=== PATIENT | female | born 2000 | race African-American/Black ===

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

== ENCOUNTER 2020-10-31 19:29 | Inpatient (IN) | payer MEDICAID ==
[~2020-10-31] VITALS: Ht 165.1 cm; Wt 45.4 kg
[~2020-10-31 19:29] MED LIST: MACROBID100 MG PO; PHENAZOPYRIDIN100 MG PO
[2020-10-31 20:10] LABS: BASOPHILS 0.2 % (0-2); EOSINOPHILS 0 % (0-7); HEMATOCRIT 27.9 % (36.0-48.0); IMMATURE GRANULOCYTES 0.2 % (0-5); LYMPHOCYTE ABS# 0.55 10x3/uL (1.18-3.74); LYMPHOCYTES 12.7 % (15-50); MCH 25.2 pg (26.0-34.0); MCHC 32.3 g/dL (31.0-37.0); MCV 78.2 fL (80.0-100.0); MEAN PLATELET VOLUME 9.8 fL (7.4-10.4); MONOCYTES 7.1 % (2-11); NEUTROPHIL ABS# 3.46 10x3/uL (1.56-6.13); NEUTROPHILS 79.8 % (40-80); PLATELET COUNT 339 10x3/uL (130-400); RBC 3.57 10x6/uL (4.00-5.40); RDW 13.7 % (11.5-14.5); WBC 4.3 10x3/uL (4.8-10.8)
[2020-10-31 20:25] LABS: CALC OSMOLALITY 265 mosm/kg (275-300); CALCIUM 8.3 mg/dL (8.5-10.1); CARBON DIOXIDE 26.9 mmol/L (21.0-32.0); CHLORIDE - SERUM 99 mmol/L (98-107); CREATININE - SERUM 0.8 mg/dL (0.6-1.3); GLUCOSE 88 mg/dL (74-106); POTASSIUM - SERUM 3.5 mmol/L (3.5-5.1); SODIUM 134 mmol/L (136-145); UREA NITROGEN 9 mg/dL (7-18); eGFR NON AFRICAN AMERICAN > 90 mL/min (90-120)
[2020-10-31 20:26] LABS: HCG SERUM NEGATIVE (NEGATIVE)
[2020-10-31 20:28] LABS: APTT 33.2 SECONDS (22.8-39.4); INR 1.23 (0.85-1.17); PROTIME 14.4 SECONDS (11.6-15.0)
[2020-10-31 20:41] LABS: D-DIMER-QUANTITATIVE 12.45 ug/mLFEU (0.20-0.54)
[2020-10-31 20:44] LABS: BILIRUBIN NEGATIVE (NEGATIVE); KETONE MODERATE mg/dL (NEGATIVE); NITRITE NEGATIVE (NEGATIVE)
[2020-10-31 20:45] LABS: SQUAMOUS EPITHELIAL 0-5 HPF (0-4)
[2020-10-31 20:47] LABS: ALBUMIN 2.4 g/dL (3.4-5.0); ALKALINE PHOSPHATASE 119 U/L (30-120); ALT (SGPT) 39 U/L (10-68); BILIRUBIN - TOTAL 0.37 mg/dL (0.2-1.3); CKMB 0.5 U/L (0.0-3.6); CREATINE KINASE 55 UL (21-215); LIPASE 57 U/L (73-393); MAGNESIUM - SERUM 1.6 mg/dL (1.8-2.4); PROTEIN - SERUM 7.9 g/dL (6.4-8.2)
[2020-10-31 21:09] LABS: INFLUENZA TYPE A NEGATIVE (NEGATIVE); INFLUENZA TYPE B NEGATIVE (NEGATIVE); SARS-CoV-2 ANTIGEN NEGATIVE- SARS-COV-2 (NEGATIVE)
[2020-10-31 22:57] VITALS: BP 98/65
[2020-11-01] VITALS (7 sets, daily range): BP systolic 90–110; BP diastolic 47–68; BMI 16.6
--- NOTE | 2020-11-01 00:27 | NUR ---
PT ARRIVED VIA STRETCHER FROM ER. NO DISTRESS NOTED.
--- NOTE | 2020-11-01 00:34 | NUR ---
Yogi COLE APRN ASSESSING PT.
[2020-11-01] MEDS ORDERED: GABAPENTIN100 MG (00:51)
[2020-11-01] MEDS ORDERED: FOLATE0.4 MG PO (00:52)
--- NOTE | 2020-11-01 01:28 | NUR ---
ADMISSION ASSESSMENT, HISTORY AND HOME MED LIST COMPLETED. PT STATES SHE IS EXHAUSTED AND JUST WANTS TO SLEEP. LUNGS ESSENTIALLY CTA. HEART TONES S1 S2. PALPABLE PERIPHEERAL PULSES. VSS. ST PER CM HR 106. IV TO LFA SL. NON SLIP SOCKS PLACED ON PT. SR UP X1, CALL LIGHT WITHIN REACH.
--- NOTE | 2020-11-01 04:34 | NUR ---
PT AWAKE; DENIES ANY DISCOMFORT OR NEEDS, CALL LIGHT WITHIN REACH.
[2020-11-01 07:53] LABS: BASOPHILS 0 % (0-2); EOSINOPHILS 0 % (0-7); HEMATOCRIT 25.2 % (36.0-48.0); IMMATURE GRANULOCYTES 0.3 % (0-5); LYMPHOCYTES 8.1 % (15-50); MCH 24.7 pg (26.0-34.0); MCHC 31.7 g/dL (31.0-37.0); MCV 77.8 fL (80.0-100.0); MEAN PLATELET VOLUME 9.4 fL (7.4-10.4); MONOCYTES 6.8 % (2-11); NEUTROPHIL ABS# 3.14 10x3/uL (1.56-6.13); NEUTROPHILS 84.8 % (40-80); PLATELET COUNT 282 10x3/uL (130-400); RBC 3.24 10x6/uL (4.00-5.40); RETIC 1.12 % (0.45-2.28); WBC 3.7 10x3/uL (4.8-10.8)
[2020-11-01 08:12] LABS: % SATURATION 8 % (15-55); IRON 12 ug/dl (35-150); TOTAL IRON BIND CAPACITY 144 ug/dl (260-445); UNSAT IRON BIND CAPACITY 132 ug/dl (150-375)
[2020-11-01 08:44] LABS: C-REACTIVE PROTEIN 7.7 mg/dL (0.0-0.9); CALCIUM 8.1 mg/dL (8.5-10.1); CARBON DIOXIDE 23.6 mmol/L (21.0-32.0); CHLORIDE - SERUM 105 mmol/L (98-107); CHOL - HDL RATIO 2.3 ratio (2.3-4.1); CHOLESTEROL, TOTAL 66 mg/dL (0-200); CREATININE - SERUM 0.7 mg/dL (0.6-1.3); FERRITIN 296 ng/mL (3-244); HDL CHOLESTEROL 29 mg/dL (32-96); LDH 249 U/L (81-234); LDL CHOLESTEROL 28 mg/dL (0-100); MAGNESIUM - SERUM 1.9 mg/dL (1.8-2.4); PHOSPHOROUS 4.4 mg/dL (2.5-4.9); SODIUM 137 mmol/L (136-145); TRIGLYCERIDE 45 mg/dL (30-200); TROPONIN-I < 0.017 ng/mL (0.000-0.060); UREA NITROGEN 7 mg/dL (7-18); eGFR NON AFRICAN AMERICAN > 90 mL/min (90-120)
[2020-11-01 08:48] LABS: CALC OSMOLALITY 274 mosm/kg (275-300); GLUCOSE 144 mg/dL (74-106); POTASSIUM - SERUM 4.8 mmol/L (3.5-5.1)
[2020-11-01 12:02] LABS: ERYTHROCYTE SEDIMENTATION RATE 101 mm/hr (0-20)
[2020-11-02 07:09] VITALS: BP 95/63
--- NOTE | 2020-11-02 08:00 | NUR ---
PT RECEIVED ASLEEP IN BED, PAIN MED GIVEN PRIOR TO SHIFT CHANGE. BP LOW BUT STEADY LEVEL.
[2020-11-02 10:01] LABS: CALCIUM 8.3 mg/dL (8.5-10.1); CARBON DIOXIDE 24.2 mmol/L (21.0-32.0); CHLORIDE - SERUM 109 mmol/L (98-107); CREATININE - SERUM 0.7 mg/dL (0.6-1.3); SODIUM 142 mmol/L (136-145); eGFR NON AFRICAN AMERICAN > 90 mL/min (90-120)
[2020-11-02 10:03] LABS: CALC OSMOLALITY 278 mosm/kg (275-300); GLUCOSE 81 mg/dL (74-106); POTASSIUM - SERUM 3.7 mmol/L (3.5-5.1); UREA NITROGEN 5 mg/dL (7-18)
[2020-11-02 10:07] LABS: ALKALINE PHOSPHATASE 176 U/L (30-120); BILIRUBIN - TOTAL 0.24 mg/dL (0.2-1.3); PROTEIN - SERUM 6.8 g/dL (6.4-8.2)
[2020-11-02 10:08] LABS: ALT (SGPT) 60 U/L (10-68)
[2020-11-02 10:12] LABS: ERYTHROPOIETIN 35.5 mIU/mL (2.6-18.5)
[2020-11-02 10:12] LABS: BASOPHILS 0.2 % (0-2); EOSINOPHILS 0.2 % (0-7); LYMPHOCYTE ABS# 0.67 10x3/uL (1.18-3.74); LYMPHOCYTES 14.6 % (15-50); MCH 24.8 pg (26.0-34.0); MCV 77.4 fL (80.0-100.0); MEAN PLATELET VOLUME 9.6 fL (7.4-10.4); MONOCYTES 5.9 % (2-11); NEUTROPHIL ABS# 3.53 10x3/uL (1.56-6.13); NEUTROPHILS 77.1 % (40-80); PLATELET COUNT 321 10x3/uL (130-400); RBC 3.23 10x6/uL (4.00-5.40); RDW 14.4 % (11.5-14.5); WBC 4.6 10x3/uL (4.8-10.8)
[2020-11-02 12:12] VITALS: BP 88/58
[2020-11-02 14:07] VITALS: Ht 165.1 cm; Wt 45.4 kg
[2020-11-02 15:21] VITALS: BP 92/54
--- NOTE | 2020-11-02 19:30 | NUR ---
PT IN BED, AAO X 4, RESP EVEN AND UNLABORED, NO DISTRESS NOTED, CL IN REACH, SR UP X 2.
[2020-11-02 20:00] VITALS: BP 97/52
[2020-11-03] VITALS: BP 102/60
[2020-11-03 04:00] VITALS: BP 97/64
--- NOTE | 2020-11-03 05:47 | NUR ---
I have reviewed this patient and I concur with the Shift Assessment completed by the Licensed Practical Nurse today this shift.
--- NOTE | 2020-11-03 07:10 | NUR ---
Lying in bed, awake/alert/oriented, T/R self ad dimitri, cont of B/B with BRPs per self ad dimitri, denies pain/other discomfort at this time, call light/phone/water within reach, no s/s of acute distress observed.
[2020-11-03 07:45] LABS: ALBUMIN 1.9 g/dL (3.4-5.0); ALKALINE PHOSPHATASE 149 U/L (30-120); BILIRUBIN - TOTAL 0.14 mg/dL (0.2-1.3); CALC OSMOLALITY 277 mosm/kg (275-300); CARBON DIOXIDE 24.7 mmol/L (21.0-32.0); CHLORIDE - SERUM 109 mmol/L (98-107); CREATININE - SERUM 0.7 mg/dL (0.6-1.3); GLUCOSE 86 mg/dL (74-106); MAGNESIUM - SERUM 1.8 mg/dL (1.8-2.4); POTASSIUM - SERUM 3.5 mmol/L (3.5-5.1); PRO BNP 999 pg/mL (0-125); PROTEIN - SERUM 6.7 g/dL (6.4-8.2); SODIUM 141 mmol/L (136-145); UREA NITROGEN 6 mg/dL (7-18); eGFR NON AFRICAN AMERICAN > 90 mL/min (90-120)
[2020-11-03 07:47] LABS: ALT (SGPT) 43 U/L (10-68)
[2020-11-03 07:53] LABS: BASOPHILS 0.3 % (0-2); EOSINOPHILS 0.5 % (0-7); HEMATOCRIT 26.7 % (36.0-48.0); HEMOGLOBIN 8.4 g/dL (12-16); IMMATURE GRANULOCYTES 0.8 % (0-5); LYMPHOCYTE ABS# 0.57 10x3/uL (1.18-3.74); LYMPHOCYTES 14.6 % (15-50); MCH 24.8 pg (26.0-34.0); MCHC 31.5 g/dL (31.0-37.0); MCV 78.8 fL (80.0-100.0); MEAN PLATELET VOLUME 10.7 fL (7.4-10.4); MONOCYTES 5.1 % (2-11); NEUTROPHIL ABS# 3.07 10x3/uL (1.56-6.13); NEUTROPHILS 78.7 % (40-80); RBC 3.39 10x6/uL (4.00-5.40); RDW 14.5 % (11.5-14.5); WBC 3.9 10x3/uL (4.8-10.8)
[2020-11-03 08:05] LABS: PLATELET COUNT 396 10x3/uL (130-400)
[2020-11-03 08:17] VITALS: BP 105/55
[2020-11-03] MEDS ORDERED: OMNICEF300 MG PO (09:27)
[2020-11-03] MEDS ORDERED: PREDNISONE10 MG PO (09:27)
[2020-11-03] MEDS ORDERED: AZITHROMYCIN500 MG PO (09:27)
[2020-11-03 12:11] LABS: PROCALCITONIN 0.06 ng/mL (0.00-0.08)
--- NOTE | 2020-11-03 14:27 | NUR ---
IV infiltrated, stopped IV, took cath out, attempted to resite IV x 2 without success, request made of KONSTANTIN Avendaño.
--- NOTE | 2020-11-03 15:25 | NUR ---
Charge Nurse resited with 22ga cath to rt. ac, Iron restarted at 75 ml/hr
--- NOTE | 2020-11-03 23:12 | MORECARE ---
CASE MANAGEMENT DISCHARGE SUMMARY PATIENT: AVIVA WELCH UNIT: [id number] ADM DATE: 10/31/20 AGE: 20 : 00 SEX: F ROOM/BED: [facility] AUTHOR: ANGEL GIBSON PHYSICIAN: REFERRING PHYSICIAN: PAUL PRABHAKAR MD DATE OF SERVICE: 11/03/20 Case Management Discharge Planning Summary DCP REVIEW SUMMARY ANTICIPATED D/C DATE: 11/03/2020 EXPECTED LOS : 3 CASE STATUS: DCP Complete INITIAL REVIEW: 10/31/2020 INITIAL REVIEWER: Stephenie Salazar FINAL DISCHARGE DISPOSITION: 01 : Home or Self Care (Routine Discharge) FINAL REVIEWER: Stephenie Salazar FINAL REVIEW DATE: 11/03/2020 DCP Focus Questions & Answers DCP Screen QUESTION: ANSWER High Risk Factors: : Readmission within past 30 days DCP Evaluation QUESTION: ANSWER Patient's ability to cope with chronic illness : d. No chronic illness Would patient like to participate in any Care Coordination programs (if applicable): : Not applicable Mental health screen: : No mental health history DCP Re-evaluation QUESTION: ANSWER Would patient like to participate in any Care Coordination programs (if applicable): : Not applicable PATIENT: AVIVA WELCH ENCOUNTER: [id number] MEDICAL RECORD#: [id number] ADMISSION DATE: 10/31/2020 DISCHARGE DATE: 11/03/2020 ATTENDING MD: PAUL RENTERIA : AGE: 20 MARITAL STATUS: S DC PLAN ID: [id number] FACILITY: [facility] PRINTED ON: 11/03/20 23:12 CT All edits/amendments must be made on the electronic document DICTATION DATE: 11/03/202310 SCREEN PRINTING CLOTH SPREADER: DM 11/03/202310 RPT#: [id number] DC DATE:11/03/20 STATUS: DIS IN [facility] [address] [place] [address] END OF REPORT
--- NOTE | 2020-11-03 23:32 | MORECARE ---
CASE MANAGEMENT DISCHARGE SUMMARY PATIENT: AVIVA WELCH UNIT: [id number] ADM DATE: 10/31/20 AGE: 20 : 00 SEX: F ROOM/BED: D.2133 AUTHOR: ANGEL GIBSON PHYSICIAN: REFERRING PHYSICIAN: PAUL PRABHAKAR MD DATE OF SERVICE: 11/03/20 Case Management Discharge Planning Summary COMMENTS ENTERED DATE: 11/03/20 23:26 CT COMMENT TYPE: Discharge Planning REVIEWER: Stephenie Salazar CM spoke with patient to complete initial dc planning assessment. CM educated patient on the CM role and verbal consent given by patient to complete assessment. Patient lives at home with family. Patient is independent. At discharge patient plans to return home and feels this is a safe discharge. CM discussed availability of home health, rehab services, and medical equipment. Patient will have family to transport home. Patient denied known discharge needs at this time. CM will continue to follow and will assist as needed with dc plans/needs. DCP REVIEW SUMMARY ANTICIPATED D/C DATE: 11/03/2020 EXPECTED LOS : 3 CASE STATUS: DCP Complete INITIAL REVIEW: 10/31/2020 INITIAL REVIEWER: Stephenie Salazar FINAL DISCHARGE DISPOSITION: 01 : Home or Self Care (Routine Discharge) FINAL REVIEWER: Stephenie Salazar FINAL REVIEW DATE: 11/03/2020 DCP Focus Questions & Answers DCP Screen QUESTION: ANSWER High Risk Factors: : Readmission within past 30 days DCP Evaluation QUESTION: ANSWER Patient and/or caregiver agree upon recommended discharge plan? : Yes Patient's current cognitive status: : *Oriented to person, place, situation, time and present Patient's ability to cope with chronic illness : d. No chronic illness Patient gives permission to discuss discharge plans with: (name, relationship and number) : CHASE EldridgeMOTHER- [id number]. [phone] Family / Caregiver's ability to cope with chronic illness: : a. Adequate (ability to meet patient's medical needs, ensures patient attends medical appts.) Does the patient have the ability to pay for or attain post discharge needs / services? : Yes Functional screen assessment: : Basic needs can adequately be met by self Physical Status: : Independent with ADL's Equipment needed for post hospitalization: : None Is there a likelihood that the patient will require additional services to return to the preadmission environment? : N/A Living Arrangements: : Home with Spouse/Significant Other Results of this evaluation have been discussed with: : Patient Patient with capacity for self-care or can be cared for in same environment as prior to hospitalization? : Yes Baseline cognitive status: : *Oriented to person, place, situation, time and present Living arrangements comments: : LIVES W BOYFRIEND Medication Management: : Patient states can afford medications Pharm[facility] name(s): : [facility] Does Patient have transportation to get home and to follow-up medical appointments when discharged from the hospital? : Yes Would patient like to participate in any Care Coordination programs (if applicable): : Not applicable Does the patient have electricity at home? : Yes Does the patient have running water in their house? : Yes Equipment in use: : None Mental health screen: : No mental health history DCP Re-evaluation QUESTION: ANSWER Would patient like to participate in any Care Coordination programs (if applicable): : Not applicable PATIENT: AVIVA WELCH ENCOUNTER: [id number] MEDICAL RECORD#: [id number] ADMISSION DATE: 10/31/2020 DISCHARGE DATE: 11/03/2020 ATTENDING MD: PAUL RENTERIA : AGE: 20 MARITAL STATUS: S DC PLAN ID: [id number] FACILITY: [facility] PRINTED ON: 11/03/20 23:32 CT All edits/amendments must be made on the electronic document DICTATION DATE: 11/03/202331 RESEARCH GEOLOGIST: SHAREE 11/03/202331 RPT#: [id number] DC DATE:11/03/20 STATUS: DIS IN [facility] [address] [place] [address] END OF REPORT
== END 2020-11-03 20:26 | disposition home or self-care (01) | DRG 194 ==
LOC: D.ER 19:29 → D.M2 23:07
PROVIDERS: Emergency Medicine; Family Medicine; ADMIT Emergency Medicine; ATTEND Emergency Medicine
DX: J18.9 Pneumonia, unspecified organism (principal); I31.3 Pericardial effusion (noninflammatory); Z20.822 Contact with and (suspected) exposure to COVID-19; D50.9 Iron deficiency anemia, unspecified; M32.9 Systemic lupus erythematosus, unspecified; M34.9 Systemic sclerosis, unspecified; R59.1 Generalized enlarged lymph nodes; I07.1 Rheumatic tricuspid insufficiency

== ENCOUNTER 2020-11-15 19:29 | Emergency (ER) | payer MEDICAID ==
[~2020-11-15] VITALS: Ht 165.1 cm; Wt 45.5 kg
[~2020-11-15 19:29] MED LIST changes: +AZITHROMYCIN500 MG PO; +FOLATE0.4 MG PO; +GABAPENTIN100 MG; +OMNICEF300 MG PO; +PREDNISONE10 MG PO
[2020-11-15 19:45] VITALS: Ht 165.1 cm; Wt 45.5 kg
[2020-11-15] MEDS ORDERED: TREXALL7.5 MG PO (19:47)
[2020-11-15] MEDS ORDERED: OXYCONTIN10 MG PO (19:48)
[2020-11-15] MEDS ORDERED: VITAMIN D325 MC1 PO (19:48)
[2020-11-15] MEDS ORDERED: FOLIC ACID1 MG PO (19:48)
[2020-11-15 21:10] LABS: BASOPHILS 0.2 % (0-2); EOSINOPHILS 0 % (0-7); HEMATOCRIT 30.6 % (36.0-48.0); HEMOGLOBIN 9.9 g/dL (12-16); IMMATURE GRANULOCYTES 0.9 % (0-5); LYMPHOCYTE ABS# 0.68 10x3/uL (1.18-3.74); LYMPHOCYTES 12.6 % (15-50); MCH 25.4 pg (26.0-34.0); MCHC 32.4 g/dL (31.0-37.0); MCV 78.5 fL (80.0-100.0); MEAN PLATELET VOLUME 9.4 fL (7.4-10.4); MONOCYTES 4.8 % (2-11); NEUTROPHIL ABS# 4.38 10x3/uL (1.56-6.13); NEUTROPHILS 81.5 % (40-80); PLATELET COUNT 426 10x3/uL (130-400); RDW 16.4 % (11.5-14.5); WBC 5.4 10x3/uL (4.8-10.8)
[2020-11-15 21:22] LABS: APTT 33.2 SECONDS (22.8-39.4); INR 1.31 (0.85-1.17); PROTIME 15.1 SECONDS (11.6-15.0)
[2020-11-15 21:23] LABS: CALC OSMOLALITY 263 mosm/kg (275-300); CALCIUM 8.9 mg/dL (8.5-10.1); CARBON DIOXIDE 23.9 mmol/L (21.0-32.0); CHLORIDE - SERUM 99 mmol/L (98-107); GLUCOSE 95 mg/dL (74-106); POTASSIUM - SERUM 3.7 mmol/L (3.5-5.1); SODIUM 133 mmol/L (136-145); UREA NITROGEN 8 mg/dL (7-18); eGFR NON AFRICAN AMERICAN 75 mL/min (90-120)
[2020-11-15 21:33] LABS: ALBUMIN 2.5 g/dL (3.4-5.0); ALKALINE PHOSPHATASE 186 U/L (30-120); ALT (SGPT) 44 U/L (10-68); BILIRUBIN - TOTAL 0.75 mg/dL (0.2-1.3); PRO BNP 750 pg/mL (0-125); PROTEIN - SERUM 8.8 g/dL (6.4-8.2)
[2020-11-15] MEDS ORDERED: VIBRAMYCIN 100100 MG PO (23:12)
[2020-11-16 00:02] VITALS: BP 103/62
== END 2020-11-16 00:03 | disposition home or self-care (01) ==
LOC: D.ER 19:29
PROVIDERS: Family Medicine
DX: J18.9 Pneumonia, unspecified organism (principal); R07.9 Chest pain, unspecified

== ENCOUNTER 2020-12-01 23:59 | Emergency (ER) | payer MEDICAID ==
[~2020-12-01] VITALS: Ht 165.1 cm; Wt 45.5 kg
[~2020-12-01 23:59] MED LIST changes: +FOLIC ACID1 MG PO; +OXYCONTIN10 MG PO; +TREXALL7.5 MG PO; +VIBRAMYCIN 100100 MG PO; +VITAMIN D325 MC1 PO
[2020-12-02 00:07] VITALS: Ht 165.1 cm; Wt 45.5 kg
[2020-12-02] MEDS ORDERED: HYDROCODON-ACE1 EAC7 PO (00:12)
[2020-12-02 01:02] LABS: EOSINOPHILS 0.2 % (0-7); HEMATOCRIT 29.6 % (36.0-48.0); HEMOGLOBIN 9.3 g/dL (12-16); LYMPHOCYTES 11.7 % (15-50); MCH 24.2 pg (26.0-34.0); MCHC 31.6 g/dL (31.0-37.0); MCV 76.7 fL (80.0-100.0); MEAN PLATELET VOLUME 7.7 fL (7.4-10.4); MONOCYTES 4.6 % (2-11); NEUTROPHILS 76.5 % (40-80); RBC 3.85 10x6/uL (4.00-5.40); RDW 18.7 % (11.5-14.5); WBC 3.4 10x3/uL (4.8-10.8)
[2020-12-02 01:05] LABS: PLATELET COUNT 295 10x3/uL (130-400)
[2020-12-02 01:09] LABS: HCG SERUM NEGATIVE (NEGATIVE)
[2020-12-02 01:13] LABS: ALBUMIN 2.7 g/dL (3.4-5.0); ALKALINE PHOSPHATASE 79 U/L (30-120); ALT (SGPT) 18 U/L (10-68); BILIRUBIN - TOTAL 0.22 mg/dL (0.2-1.3); C-REACTIVE PROTEIN 4.6 mg/dL (0.0-0.9); CALC OSMOLALITY 265 mosm/kg (275-300); CALCIUM 8.1 mg/dL (8.5-10.1); CARBON DIOXIDE 23.6 mmol/L (21.0-32.0); CHLORIDE - SERUM 100 mmol/L (98-107); CREATININE - SERUM 0.8 mg/dL (0.6-1.3); GLUCOSE 97 mg/dL (74-106); PROTEIN - SERUM 8.2 g/dL (6.4-8.2); SODIUM 134 mmol/L (136-145); UREA NITROGEN 6 mg/dL (7-18); eGFR NON AFRICAN AMERICAN > 90 mL/min (90-120)
[2020-12-02 01:17] LABS: POTASSIUM - SERUM 2.8 mmol/L (3.5-5.1)
[2020-12-02 02:58] VITALS: BP 124/50
== END 2020-12-02 02:58 | disposition home or self-care (01) ==
LOC: D.ER 23:59
PROVIDERS: Student in an Organized Health Care Education/Training Program
DX: M79.7 Fibromyalgia (principal); E87.6 Hypokalemia; M32.9 Systemic lupus erythematosus, unspecified

== ENCOUNTER 2020-12-15 18:55 | Emergency (ER) | payer MEDICAID ==
[~2020-12-15] VITALS: Ht 165.1 cm; Wt 45.5 kg
[~2020-12-15 18:55] MED LIST changes: +HYDROCODON-ACE1 EAC7 PO
[2020-12-15 19:38] VITALS: Ht 165.1 cm; Wt 45.5 kg
[2020-12-15 21:40] LABS: BASOPHILS 0.6 % (0-2); EOSINOPHILS 0.9 % (0-7); HEMATOCRIT 30.8 % (36.0-48.0); HEMOGLOBIN 9.8 g/dL (12-16); LYMPHOCYTES 20.2 % (15-50); MCH 24.4 pg (26.0-34.0); MCHC 31.8 g/dL (31.0-37.0); MCV 76.9 fL (80.0-100.0); MEAN PLATELET VOLUME 7.1 fL (7.4-10.4); MONOCYTES 1.5 % (2-11); NEUTROPHILS 76.8 % (40-80); RBC 4.01 10x6/uL (4.00-5.40); RDW 19.1 % (11.5-14.5)
[2020-12-15 21:46] LABS: CALC OSMOLALITY 274 mosm/kg (275-300); CALCIUM 8.4 mg/dL (8.5-10.1); CARBON DIOXIDE 25.1 mmol/L (21.0-32.0); CHLORIDE - SERUM 104 mmol/L (98-107); CREATININE - SERUM 0.6 mg/dL (0.6-1.3); GLUCOSE 84 mg/dL (74-106); POTASSIUM - SERUM 3.7 mmol/L (3.5-5.1); SODIUM 139 mmol/L (136-145); UREA NITROGEN 8 mg/dL (7-18); eGFR NON AFRICAN AMERICAN > 90 mL/min (90-120)
[2020-12-15 21:51] LABS: PLATELET COUNT 408 10x3/uL (130-400)
[2020-12-15 21:52] LABS: ALBUMIN 2.7 g/dL (3.4-5.0); ALKALINE PHOSPHATASE 79 U/L (30-120); ALT (SGPT) 25 U/L (10-68); BILIRUBIN - TOTAL 0.26 mg/dL (0.2-1.3); C-REACTIVE PROTEIN 1.3 mg/dL (0.0-0.9); MAGNESIUM - SERUM 1.6 mg/dL (1.8-2.4); PROTEIN - SERUM 8.4 g/dL (6.4-8.2)
[2020-12-15 22:55] LABS: ERYTHROCYTE SEDIMENTATION RATE 58 mm/hr (0-20)
[2020-12-15] MEDS ORDERED: CYCLOBENZAPRINE5 MG PO (23:15)
[2020-12-16 02:22] VITALS: BP 112/73
== END 2020-12-16 02:12 | disposition home or self-care (01) ==
LOC: D.ER 18:55
PROVIDERS: Emergency Medicine
DX: M79.602 Pain in left arm (principal); D64.9 Anemia, unspecified; R79.82 Elevated C-reactive protein (CRP)

== ENCOUNTER 2020-12-22 01:17 | Emergency (ER) | payer MEDICAID ==
[~2020-12-22] VITALS: Ht 165.1 cm; Wt 45.5 kg
[~2020-12-22 01:17] MED LIST changes: +CYCLOBENZAPRINE5 MG PO
[2020-12-22 01:29] VITALS: Ht 165.1 cm; Wt 45.5 kg
[2020-12-22 02:35] VITALS: BP 101/63
== END 2020-12-22 02:36 | disposition home or self-care (01) ==
LOC: D.ER 01:17
DX: M79.602 Pain in left arm (principal); M79.601 Pain in right arm; M32.9 Systemic lupus erythematosus, unspecified; M06.9 Rheumatoid arthritis, unspecified; M79.7 Fibromyalgia

== ENCOUNTER 2020-12-22 08:17 | Inpatient (IN) | payer MEDICAID ==
[~2020-12-22] VITALS: Ht 165.1 cm; Wt 48.0 kg
--- NOTE | ~2020-12-22 | HEMODYNAMI ---
PATIENT:AVIVA WELCH MEDICAL RECORD: [id number] : 00 LOCATION:[facility] D.2306 ADMISSION DATE: 12/23/20 Generatedon:110:43 Patient name: AVIVA WELCH Patient #: [id number] SSN: : 2000 Date of study: 12/29/2020 Page: Of Hemodynamic Procedure Report Patient Data Patient Demographics Procedure consent was obtained First Name: AVIVA Gender: Female Last Name: REBEKAH : 2000 Patient #: [id number] Age: 20 year(s) Race: Black Additional ID: [id number] Contact details Address: [address] [place] [address] State: [place] City: [place] Zip code: [address] Past Medical History Allergies: No known allergies Admission Admission Data Admission Date: 12/23/2020 Admission Time: 15:57 Room #: 2306 Procedure Procedure Types Cath Procedure Peripheral Cath Diagnostic Procedure Miscellaneous Lumbar Puncture Procedure Description Procedure Date Procedure Date: 12/29/2020 Procedure Start Time: 10:07 Procedure Staff Name Function Kenya Elizalde RT Client Support Coordinator Kenrick Duvall MD Performing Physician JULIANNE SANON RT Scrub Virginia Wheeler RN Nurse Procedure Data Cath Procedure Fluoroscopy Diagnostic fluoroscopy Total fluoroscopy Time: 0.9 time: 0.9 min min Diagnostic fluoroscopy Total fluoroscopy dose: 4 dose: 4 mGy mGy Procedure Medications Medication Administration Route Dosage Lidocaine 1% added to field 20 Fentanyl I.V. 50 mcg Versed I.V. 1 mg Versed I.V. 0.5 mg Fentanyl I.V. 25 mcg Hemodynamics Rest Heart Rate: 73 (bpm) Snapshots Pre Cath Intra NCS Post Cath Vital Signs Time Heart Resp SPO2 etCO2 NIBP (mmHg) Rhythm Pain Sedation Rate (ipm) (%) (mmHg) Status Level (bpm) 10:04:16 72 0 184/96(128) NSR 0 (11) 10(A) , No pain 10:08:36 84 14 99 0 155/108(123) NSR 0 (11) 9(A) , No pain 10:12:45 87 14 99 0 169/98(124) NSR 0 (11) 9(A) , No pain 10:16:59 83 12 100 0 161/96(113) NSR 0 (11) 8(A) , No pain 10:21:13 81 96 0 166/90(118) NSR 0 (11) 8(A) , No pain 10:25:26 81 2 93 0 171/102(131) NSR 0 (11) 9(A) , No pain 10:29:40 92 16 88 0 183/105(139) NSR 0 (11) 9(A) , No pain Medications Time Medication Route Dose Verified Delivered Reason Notes Effectiven ess by by 10:02:30 Fentanyl I.V. 50 M J Jadiel Coleman for mcg MD Wheeler sedation RN 10:07:02 Versed I.V. 1 mg M Yogi Coleman for MD Wheeler sedation RN 10:07:55 Lidocaine added 20ml M J Long Kenrick Duvall used for 1% to vial MD CAI procedure field 10:10:10 Versed I.V. 0.5 M J Jadiel Coleman for mg MD Wheeler sedation RN 10:10:58 Fentanyl I.V. 25 M J Long Virginia for mcg MD Wheeler sedation glove turner and former Log Time Note 10:02:30 Fentanyl 50 mcg I.V. was administered by Virginia Wheeler RN; for sedation; Verbal order read back and verified. 10:02:44 Time tracking: Regular hours (M-F 7:00 - 5:00) 10:03:04 Patient received from ICU to Alert and oriented. Tansferred to table in Prone position. 10:03:09 Signed procedure consent form obtained from guardian. 10:03:13 Vital chart was started 10:03:14 Baseline sample Acquired. 10:03:15 Full Disclosure recording started 10:03:16 - 10:03:23 H&P Date Dictated: 12/29/2020 Within 30 days and on chart.. 10:03:25 Pre-op teaching completed and patient verbalized understanding. 10:03:25 Pre-procedure instructions explained to patient. 10:03:32 Family in waiting room. 10:03:35 Patient NPO since Midnight. 10:03:47 Patient allergic to No known allergies 10:03:58 Patient diabetic? No. 10:04:00 ----Pre-sedation anethsthesia assessment.---- 10:04:03 Previous problem with sedation/anesthesia? No ? 10:04:06 Snore? Yes 10:04:08 Sleep apnea? No 10:04:10 Deviated septum? No 10:04:12 Opens mouth fully? Yes 10:04:14 Sticks out tongue? Yes 10:04:16 Airway obstruction? No ? 10:04:19 Dentures? No ? 10:04:28 Lumbar area was prepped with betadine and draped in sterile fashion 10:04:32 Alarms reviewed by Sharon Rivas 10:04:36 - 10:05:01 SAFE-T PLUS MYELOGRAM TRAY opened to sterile field. 10:06:33 Physician arrived 10:06:34 --------ALL STOP TIME OUT------ 10:06:35 Final Timeout: patient, procedure, and site verified with staff and physician. All members of the team are in agreement. 10:06:47 Fire Safety Assessment: C--Open oxygen or nitrous oxide is being used. 10:07:02 Versed 1 mg I.V. was administered by Virginia Wheeler RN; for sedation; Verbal order read back and verified. 10:07:07 Procedure started. 10:07:12 Local anesthetic to Lumbar area with Lidocaine 1% by Kenrick Duvall MD.INITIAL ACCESS ONLY 10:07:55 Lidocaine 1% 20ml vial added to field was administered by Kenrick Duvall MD; used for procedure; Verbal order read back and verified. 10:10:10 Versed 0.5 mg I.V. was administered by Virginia Wheeler RN; for sedation; Verbal order read back and verified. 10:10:58 Fentanyl 25 mcg I.V. was administered by Virginia Wheeler RN; for sedation; Verbal order read back and verified. 10:19:09 OPENING PRESSURE AT 27 10:25:50 CLOSING PRESSURE 17 10:25:58 Procedure ended.(Physican Out) 10:32:07 Fluoroscopy time 00.90 minutes. 10:32:11 Fluoroscopy dose: 4 mGy 10:32:11 Flurop Dose total: 4 10:32:15 Procedure and supply charges have been captured, reviewed, submitted an d are correct. 10:34:20 Vital chart was stopped 10:34:29 Full Disclosure recording stopped Device Usage Item Name Manufacture Quantity Catalog Hospital Part Current Minimal Lot# / Number Charge Number Stock Stock Serial# Code SAFE-T [employer] 1 [id number] PLUS MYELOGRAM TRAY Signature Audit [place] Stage Time Signature Unsigned Intra-Procedure 12/29/2020 Kenya Elizalde RT(R) 10:34:15 AM RT(R) 12/29/2020 10:43:07 AM Intra-Procedure 12/29/2020 Kenya Elizalde 10:43:44 AM RT(R) [facility] [address] [place] [address]
[2020-12-22 09:01] LABS: BASOPHILS 0.4 % (0-2); HEMATOCRIT 28.2 % (36.0-48.0); WBC 2.6 10x3/uL (4.8-10.8)
[2020-12-22 09:03] LABS: EOSINOPHILS 1.2 % (0-7); LYMPHOCYTES 17.5 % (15-50); MCH 25.1 pg (26.0-34.0); MCV 78.5 fL (80.0-100.0); MEAN PLATELET VOLUME 6.8 fL (7.4-10.4); MONOCYTES 5.6 % (2-11); NEUTROPHILS 75.3 % (40-80); RBC 3.59 10x6/uL (4.00-5.40); RDW 19.1 % (11.5-14.5)
[2020-12-22 09:09] LABS: CALC OSMOLALITY 272 mosm/kg (275-300); CALCIUM 8.1 mg/dL (8.5-10.1); CARBON DIOXIDE 25.1 mmol/L (21.0-32.0); CHLORIDE - SERUM 103 mmol/L (98-107); CREATININE - SERUM 0.6 mg/dL (0.6-1.3); GLUCOSE 86 mg/dL (74-106); POTASSIUM - SERUM 3.4 mmol/L (3.5-5.1); SODIUM 138 mmol/L (136-145); UREA NITROGEN 8 mg/dL (7-18); eGFR NON AFRICAN AMERICAN > 90 mL/min (90-120)
[2020-12-22 09:28] LABS: ALBUMIN 2.6 g/dL (3.4-5.0); ALKALINE PHOSPHATASE 59 U/L (30-120); ALT (SGPT) 17 U/L (10-68); BILIRUBIN - TOTAL 0.21 mg/dL (0.2-1.3); C-REACTIVE PROTEIN 1.3 mg/dL (0.0-0.9); CKMB 0.2 U/L (0.0-3.6); CREATINE KINASE 27 UL (21-215); MAGNESIUM - SERUM 1.6 mg/dL (1.8-2.4); PROTEIN - SERUM 7.4 g/dL (6.4-8.2); TROPONIN-I < 0.017 ng/mL (0.000-0.060)
[2020-12-22 09:34] LABS: APTT 34.1 SECONDS (22.8-39.4); INR 1.26 (0.85-1.17); PROTIME 14.6 SECONDS (11.6-15.0)
[2020-12-22 09:39] LABS: PLATELET COUNT 196 10x3/uL (130-400)
[2020-12-22 11:55] LABS: ERYTHROCYTE SEDIMENTATION RATE 71 mm/hr (0-20)
[2020-12-22 12:01] LABS: RETIC 1.21 % (0.45-2.28)
[2020-12-22 12:02] LABS: CKMB 0.2 U/L (0.0-3.6); CREATINE KINASE 26 UL (21-215)
[2020-12-22 12:03] LABS: TROPONIN-I < 0.017 ng/mL (0.000-0.060)
[2020-12-22 18:15] LABS: CREATINE KINASE 24 UL (21-215); TROPONIN-I < 0.017 ng/mL (0.000-0.060)
[2020-12-22 19:12] VITALS: BP 91/61
[2020-12-22 19:30] VITALS: BP 99/73
[2020-12-22 20:00] VITALS: BP 93/63
[2020-12-22 21:00] VITALS: BP 99/69
[2020-12-22 22:00] VITALS: BP 103/73
[2020-12-22 23:00] VITALS: BP 111/81
[2020-12-23 00:01] VITALS: BP 102/70
[2020-12-23 00:18] LABS: CKMB 0.2 U/L (0.0-3.6); CREATINE KINASE 27 UL (21-215)
[2020-12-23 00:19] LABS: TROPONIN-I < 0.017 ng/mL (0.000-0.060)
[2020-12-23 01:00] VITALS: BP 106/60
[2020-12-23 02:00] VITALS: BP 107/71
--- NOTE | 2020-12-23 02:43 | NUR ---
APPETITE GOOD PRN MORPHINE FLOOR NURSE. PAIN 2/10
--- NOTE | 2020-12-23 04:14 | NUR ---
12 HOUR SHIFT TOTAL MORPHINE JOURNEYMAN WELDER USED WAS 6MG
[2020-12-23 04:23] VITALS: BP 109/75
[2020-12-23 06:10] LABS: BASOPHILS 0.2 % (0-2); EOSINOPHILS 0 % (0-7); HEMOGLOBIN 9.9 g/dL (12-16); LYMPHOCYTES 8.2 % (15-50); MCH 25.2 pg (26.0-34.0); MEAN PLATELET VOLUME 7.8 fL (7.4-10.4); MONOCYTES 2.7 % (2-11); NEUTROPHILS 88.9 % (40-80); RBC 3.93 10x6/uL (4.00-5.40); RDW 18.9 % (11.5-14.5); WBC 3.1 10x3/uL (4.8-10.8)
[2020-12-23 06:15] LABS: MCV 76.2 fL (80.0-100.0); PLATELET COUNT 357 10x3/uL (130-400)
[2020-12-23 06:36] VITALS: BP 94/59
[2020-12-23 06:44] LABS: ALBUMIN 2.4 g/dL (3.4-5.0); ALKALINE PHOSPHATASE 67 U/L (30-120); ALT (SGPT) 16 U/L (10-68); BILIRUBIN - TOTAL 0.13 mg/dL (0.2-1.3); CALCIUM 8.1 mg/dL (8.5-10.1); CARBON DIOXIDE 25.5 mmol/L (21.0-32.0); CHLORIDE - SERUM 108 mmol/L (98-107); CREATININE - SERUM 0.7 mg/dL (0.6-1.3); PROTEIN - SERUM 7.5 g/dL (6.4-8.2); SODIUM 140 mmol/L (136-145); UREA NITROGEN 10 mg/dL (7-18); eGFR NON AFRICAN AMERICAN > 90 mL/min (90-120)
[2020-12-23 06:47] LABS: CALC OSMOLALITY 279 mosm/kg (275-300); GLUCOSE 139 mg/dL (74-106); POTASSIUM - SERUM 4.2 mmol/L (3.5-5.1)
[2020-12-23 14:00] VITALS: BMI 16.6
[2020-12-23 14:32] VITALS: BP 126/83
[2020-12-23 19:05] LABS: BACTERIA FEW HPF (<MOD); BILIRUBIN NEGATIVE (NEGATIVE); KETONE NEGATIVE mg/dL (< 1+); NITRITE NEGATIVE (NEGATIVE); SQUAMOUS EPITHELIAL 11 HPF (0-4); UROBILINOGEN NORMAL mg/dL (< 2); WHITE CELLS - URINE 4 HPF (0-4)
[2020-12-24] VITALS (7 sets, daily range): BP systolic 121–146; BP diastolic 73–99; Ht 165.1 cm; Wt 48.0 kg
--- NOTE | 2020-12-24 00:28 | NUR ---
REPORT RECEIVED FROM SARAVANAN GOLDSTEIN. PT AMBULATED TO AND FROM RESTROOM AT THIS TIME. PT SMILING, DENIES CURRENT PAIN. PT ALSO DENIES NEEDS.
--- NOTE | 2020-12-24 01:52 | NUR ---
PT RESTING COMFORTABLY IN BED PLAYING ON CELL PHONE. RR EVEN AND UNLABORED, VSS PT DENIES NEEDS. CALL LIGHT IN REACH.
--- NOTE | 2020-12-24 04:19 | NUR ---
PT AROUSES TO VERBAL STIMULI. DENIES PAIN CURRENTLY. RESPIRATIONS EVEN AND NON LABORED.
--- NOTE | 2020-12-25 03:59 | NUR ---
I have reviewed this patient and I concur with the Shift Assessment completed by the Licensed Practical Nurse today this shift.
[2020-12-25 05:15] VITALS: BP 142/87
--- NOTE | 2020-12-25 07:45 | NUR ---
PT IN PAIN EVEN AFTER THE TORADOL. ASKED IF ICE OR HEAT PACK WOULD HELP. AND THAT I WOULD SEE WHAT OTHER PAIN MEDICATION WE MIGHT TRY. CL IN REACH. NO NEEDS AT THIS TIME. REEMA
[2020-12-25 09:14] VITALS: BP 146/85
--- NOTE | 2020-12-25 09:21 | NUR ---
PT IN SEVERE PAIN CRYING SITTING UP WITH HEAD ON KNEES. PUT IN A CALL FOR DR PAIGE TO GET PAIN MEDICATION SINCE WHAT WE HAVE IS NOT WORKING. CL IN REACH. WCTM
[2020-12-25 13:37] VITALS: BP 136/78
--- NOTE | 2020-12-25 14:21 | NUR ---
PT IS ABLE TO REST AT THIS TIME. CL IN REACH. NO NEEDS. WCTM
[2020-12-25 17:21] VITALS: BP 147/96
[2020-12-25 20:00] VITALS: BP 126/90
[2020-12-26 05:19] LABS: BASOPHILS 0 % (0-2); EOSINOPHILS 0 % (0-7); HEMATOCRIT 31.9 % (36.0-48.0); IMMATURE GRANULOCYTES 0.2 % (0-5); LYMPHOCYTE ABS# 0.34 10x3/uL (1.18-3.74); LYMPHOCYTES 7.5 % (15-50); MCH 24.4 pg (26.0-34.0); MCHC 31.3 g/dL (31.0-37.0); MEAN PLATELET VOLUME 9.8 fL (7.4-10.4); MONOCYTES 3.1 % (2-11); NEUTROPHIL ABS# 4.03 10x3/uL (1.56-6.13); NEUTROPHILS 89.2 % (40-80); PLATELET COUNT 351 10x3/uL (130-400); RBC 4.09 10x6/uL (4.00-5.40); RDW 17.7 % (11.5-14.5); WBC 4.5 10x3/uL (4.8-10.8)
[2020-12-26 05:44] LABS: ALKALINE PHOSPHATASE 59 U/L (30-120); ALT (SGPT) 18 U/L (10-68); BILIRUBIN - TOTAL 0.15 mg/dL (0.2-1.3); CALC OSMOLALITY 278 mosm/kg (275-300); CALCIUM 7.9 mg/dL (8.5-10.1); CARBON DIOXIDE 22.8 mmol/L (21.0-32.0); CHLORIDE - SERUM 107 mmol/L (98-107); CREATININE - SERUM 0.6 mg/dL (0.6-1.3); GLUCOSE 122 mg/dL (74-106); POTASSIUM - SERUM 3.6 mmol/L (3.5-5.1); PROTEIN - SERUM 6.6 g/dL (6.4-8.2); SODIUM 138 mmol/L (136-145); UREA NITROGEN 19 mg/dL (7-18); eGFR NON AFRICAN AMERICAN > 90 mL/min (90-120)
[2020-12-26 06:23] LABS: ERYTHROCYTE SEDIMENTATION RATE 23 mm/hr (0-20)
[2020-12-26 06:33] VITALS: BP 165/109
[2020-12-26 09:05] VITALS: BP 120/86
[2020-12-26 11:45] VITALS: BP 136/90
[2020-12-26 20:00] VITALS: BP 146/107
--- NOTE | 2020-12-26 20:28 | NUR ---
PAGED DR PAIGE ABOUT ELEVATED BP OF 146/107
--- NOTE | 2020-12-26 20:32 | NUR ---
LISINOPRIL 5MG DAILY ORDERED
[2020-12-27] VITALS: BP 157/102
[2020-12-27 04:00] VITALS: BP 153/102
--- NOTE | 2020-12-27 07:50 | NUR ---
AWAKE AND ALERT. ORIENTED X3. NO C/O AT THIS TIME. LUNGS ARE CLEAR BILATERALLY, NO COUGH NOTED. SKIN IS INTACT WITHOUT REDNESS. IV TO LEFT HAND IS PATETN WITHOUT REDNESS AT INSERTION SITE. DENIES NEEDS.
[2020-12-27 08:03] LABS: BASOPHILS 0.3 % (0-2); EOSINOPHILS 0 % (0-7); HEMATOCRIT 29.9 % (36.0-48.0); HEMOGLOBIN 9.8 g/dL (12-16); LYMPHOCYTES 7.3 % (15-50); MCH 25.1 pg (26.0-34.0); MCHC 32.8 g/dL (31.0-37.0); MCV 76.4 fL (80.0-100.0); MEAN PLATELET VOLUME 7.6 fL (7.4-10.4); MONOCYTES 3.9 % (2-11); NEUTROPHILS 88.5 % (40-80); PLATELET COUNT 287 10x3/uL (130-400); RBC 3.91 10x6/uL (4.00-5.40); RDW 18.9 % (11.5-14.5)
[2020-12-27 08:09] LABS: WBC 7.3 10x3/uL (4.8-10.8)
[2020-12-27 08:21] LABS: ALBUMIN 1.9 g/dL (3.4-5.0); ALKALINE PHOSPHATASE 59 U/L (30-120); ALT (SGPT) 22 U/L (10-68); BILIRUBIN - TOTAL 0.15 mg/dL (0.2-1.3); CALC OSMOLALITY 280 mosm/kg (275-300); CALCIUM 7.8 mg/dL (8.5-10.1); CARBON DIOXIDE 25.4 mmol/L (21.0-32.0); CHLORIDE - SERUM 108 mmol/L (98-107); CREATININE - SERUM 0.6 mg/dL (0.6-1.3); GLUCOSE 132 mg/dL (74-106); POTASSIUM - SERUM 3.2 mmol/L (3.5-5.1); PROTEIN - SERUM 6.1 g/dL (6.4-8.2); SODIUM 140 mmol/L (136-145); eGFR NON AFRICAN AMERICAN > 90 mL/min (90-120)
[2020-12-27 08:23] LABS: UREA NITROGEN 12 mg/dL (7-18)
[2020-12-27 09:09] VITALS: BP 156/101
--- NOTE | 2020-12-27 09:30 | NUR ---
ATE ALL OF BREAKFAST SHE WANTED CALLED FOR MORE OF WHAT SHE ASKED FOR. DISCUSSED ABILITY TO CHOOSE FROM MENU TO EAT. ALL QUESTIONS ANSWERED. TOOK AM MEDS WITHOUT DIFFICULTY. INSTRUCTED IN USE OF IS WA WITH RETURN DEMONSTRATION.
[2020-12-27 13:30] VITALS: BP 124/86
--- NOTE | 2020-12-27 14:24 | NUR ---
Nutrition follow-up: Diet order: REgular PO Intake ~50% average of last 6 meals; pt ate 100% of breakfast and was requesting more food today per nurse. Labs reviewed Wt: 100# PO intake good at this time Will continue to provide food choices and honor food preferences. Will offer nutritional supplements with meals. RDN will follow-up on pts progression toward nutrition goals in 3-5 days.
[2020-12-27 17:46] VITALS: BP 122/88
--- NOTE | 2020-12-27 19:36 | NUR ---
ATE MOST OF SUPPER. REQUESTED AND GIVEN MAXALT WITH DILAUDID SLOW IVP FOR C/O GENERALIZED PAIN AND MIGRAIN. WILL MONITOR.
--- NOTE | 2020-12-27 19:39 | NUR ---
PATIENT REQUESTED PAIN MEDICATION AT THIS TIME. PATIENT DENIES OTHER NEEDS. BED IN LOWEST POSITION AND CALL LIGHT IN REACH. ENCOURAGED PATIENT TO CALL WITH NEEDS.
--- NOTE | 2020-12-27 19:48 | NUR ---
ADMINISTERED MEDS PER ORDERS. PATIENT CONCEPCIÓN WELL. ENCOURAGED TO CALL WITH NEEDS.
[2020-12-27 20:00] VITALS: BP 176/109
[2020-12-28] VITALS (17 sets, daily range): BP systolic 130–155; BP diastolic 91–122
--- NOTE | 2020-12-28 07:45 | NUR ---
PATIENT FOUND UNRESPONSIVE IN BED. RAPID RESPONSE CALLED. BP IS 180/117, PULSE 131, FSBS 148. NARCAN GIVEN IV AND JOLTED PATIENT BUT STILL UNRESPONSIVE. SEIAURE ACTIVITY FOR APPROXIMATLY ONE MINUTE. DR. PAIGE NOTIFIED OF THIS.
--- NOTE | 2020-12-28 08:05 | NUR ---
RETURNED FROM CT SCAN. BP IS 189/117. CONTINUES UNRESPONSIVE.
[2020-12-28 09:02] LABS: BASOPHILS 0.4 % (0-2); EOSINOPHILS 0 % (0-7); HEMATOCRIT 31.9 % (36.0-48.0); HEMOGLOBIN 10.1 g/dL (12-16); LYMPHOCYTES 2.7 % (15-50); MCH 25.4 pg (26.0-34.0); MCHC 31.7 g/dL (31.0-37.0); MEAN PLATELET VOLUME 6.8 fL (7.4-10.4); MONOCYTES 3.3 % (2-11); NEUTROPHILS 93.6 % (40-80); PLATELET COUNT 233 10x3/uL (130-400); RBC 3.98 10x6/uL (4.00-5.40); RDW 18.8 % (11.5-14.5)
[2020-12-28 09:12] LABS: ALBUMIN 2.2 g/dL (3.4-5.0); ALKALINE PHOSPHATASE 60 U/L (30-120); ALT (SGPT) 29 U/L (10-68); BILIRUBIN - TOTAL 0.47 mg/dL (0.2-1.3); CALC OSMOLALITY 274 mosm/kg (275-300); CALCIUM 8.1 mg/dL (8.5-10.1); CARBON DIOXIDE 19.8 mmol/L (21.0-32.0); CHLORIDE - SERUM 105 mmol/L (98-107); CREATININE - SERUM 0.7 mg/dL (0.6-1.3); GLUCOSE 129 mg/dL (74-106); POTASSIUM - SERUM 3.9 mmol/L (3.5-5.1); PROTEIN - SERUM 6.7 g/dL (6.4-8.2); SODIUM 137 mmol/L (136-145); UREA NITROGEN 10 mg/dL (7-18); eGFR NON AFRICAN AMERICAN > 90 mL/min (90-120)
[2020-12-28 09:21] LABS: WBC 15.3 10x3/uL (4.8-10.8)
[2020-12-28 09:22] LABS: MCV 80.1 fL (80.0-100.0)
--- NOTE | 2020-12-28 10:15 | NUR ---
RECEIVED PT TO 2306 VIA STRECHER FROM MED SURG, PT LETHARGIC AND MAKES NON PURPOSEFUL MOVEMENT, DOES NOT FOLLOW COMMANDS, PLACED ON FURNITURE SALES ASSOCIATE, ST NOTED , HR129, BP 154/117, POSITIONED FOR COMFORT, WILL MONITOR
--- NOTE | 2020-12-28 11:00 | NUR ---
SURVEY RESEARCH TEACHER AT BEDSIDE WITH PATIENT
--- NOTE | 2020-12-28 11:15 | NUR ---
DR MACDONALD HERE SEEING PATIENT
--- NOTE | 2020-12-28 11:20 | NUR ---
DR MACDONALD AWARE OF NO RHEUMATOLOGY COVERAGE
[2020-12-28 19:38] LABS: HCG URINE NEGATIVE (NEGATIVE)
--- NOTE | 2020-12-28 23:56 | NUR ---
1845 - ASSUMED CARE FROM DAY SHIFT NURSE. PT IS GOTING FOR A SPINAL TAP, CONCENTS SIGNED AND ON CHART. FAMILY AT BEDSIDE. BED AT LOWEST POSITION, SIDE RAILS UP X2., SCDs ON, NO IV FLUIDS AT THIS TIME. PT APPEARS NOT TO BE IN PAIN AT THIS TIME. VSS. NO NEEDS. WILL CONTINUE TO MONITOR. 1954 - DR LYLES CALLED TO INFORM THAT SPINAL TAP WAS UNABLE TO BE COMPLETE DO TO PT MOVING AROUND. STATES THAT PROCEDURE CAN BE TRIED AGAIN IN THE MORNING WITH SEDATION 1956 - CALLED DR. ROWAN TO INFORM HIM THAT SPINAL TAP WAS UNABLE TO BE COMPLETE FOR ABOVE REASON. AGREED WITH REPEAT SPINAL TAP IN MORNING WITH SEDATION. 2144 - SPOKE WITH DR MACDONALD ABOUT ELEVATED BP EVEN AFTER ORDERED MEDICATION HAD BEEN GIVEN. NEW ORDERS RECIEVED VERBALLY AND PLACED IN. WILL CONTINUE TO MONITOR. 2230 - SPOKE WITH MATILDA AT [facility], PT STATUS UPDATE GIVEN. PER MATILDA, NO ICU BED AVAILABLE AT [facility]. FAXED COVERSHEET TO MATILDA, , PER HER REQUEST.
[2020-12-29] VITALS (20 sets, daily range): BP systolic 101–169; BP diastolic 74–110
--- NOTE | 2020-12-29 08:49 | NUR ---
PT/PT FAMILY REFUSING LP AT THIS TIME. NOTIFIED DR SARGENT.
--- NOTE | 2020-12-29 10:53 | MORECARE ---
CASE MANAGEMENT DISCHARGE SUMMARY PATIENT: AVIVA WELCH UNIT: [id number] ADM DATE: 12/23/20 AGE: 20 : 00 SEX: F ROOM/BED: D.2306 AUTHOR: ARTHUR,DOC PHYSICIAN: REFERRING PHYSICIAN: MISAEL MACDONALD MD DATE OF SERVICE: 12/29/20 Case Management Discharge Planning Summary COMMENTS ENTERED DATE: 12/29/20 10:49 CT COMMENT TYPE: Discharge Planning REVIEWER: Natalie Castellanos CM called [facility] to check on status of transfer request. CM spoke with Sandeep who informed CM that patient is on waiting list for ICU bed. States he did not anticipate one becoming available today. ENTERED DATE: 12/28/20 18:27 CT COMMENT TYPE: Discharge Planning REVIEWER: Marcie Douglas LATE ENTRY 1230 CM NOTIFIED OF ORDER FOR TRANSFERE TO [facility] FOR RHEUMATOLOGY SERVICES. PERSONAL CELL OBTAIN FROM DR MACDONALD'S OFFICE FOR DR MC ALVARADO COMMUNICATION. CM ADVISED PRIMARY TO START TRANSFER PACKET AND OBTAIN XRAYS ON DISC. PATIENT WILL HAVE MRI OF HEAD AND EEG TODAY. TELEPHONE TO [facility] PHYSICIAN CENTER. NURSE NOT AVAILABLE DUE TO VOLUME OF REQUEST. KUSHAL OBTAINED INFORMATION TO FORWARD AND CM WILL BE CALLED BACK BY NURSE WHEN AVAILABLE. 2 1/2 HRS- NO NOTIFICATION. CM CALLED BACK TO [facility]. AWAIT NURSE CB. SPOKE W/ HOA NO AVAILABLE ICU BEDS. [facility] ALSO ON ER DIVERSION. TC TO [facility] [phone]. LEFT VOICE MAIL MESSAGE. NO CB UNTIL THIS TIME. TC TO [facility] IN [place]- NO AVAILABLE BED. DR ROWAN, NEUROLOGY VISITED. CM OBTAINED MD CALL CENTER TO REQUESTED INFORMATION ON RHEUMATOLOGY OFFICE. THE PATIENT MOTHER HAD BEEN CALLED. SHE GAVE THE NAME OF HER TIPPLE ENGINEER. ELECTRIC MELT OPERATOR AT [facility] ATTEMPTED TO REACH. THE OFICES HAD CLOSED FOR THE DAY. CB TO PHYSICIAN CALL CENTER. DR ROWAN EXPLAINED SITUATION IN GREATER DETAIL. HE DISCUSSED REFERRAL TO NEUROLOGY. HE PROVIDED HIS PHONE NUMBER FOR NEUROLOGY SERVICE. HE WAS ABLE TO SPEAK WITH NEURO MD THAT WAS EDUCATION TECHNICIAN. PROVIDED DETAILED UPDATE. THE PATIENT REQUEST HAS BEEN MOVED TO HIGHER STATUS. RECOMMENDATION WERE GIVEN TO DR ROWAN. HE HAS SPOKEN W/ LAB AND ORDERED SUGGESTED. ADDITIONAL MEDS HAVE BEEN ADDED. X/R DISC ON PATIENT CHART. TRANSFER PAPERWORK W/ DR ROWAN SIGNATURE ON CHART. NURES TO COMPLETE WHEN BED OBTAINED. AWAIT FAX OF TRANSFER BACK AGREEMENT FROM [facility]. DCP REVIEW SUMMARY ANTICIPATED D/C DATE: EXPECTED LOS : CASE STATUS: DCP Initiated INITIAL REVIEW: 12/22/2020 INITIAL REVIEWER: Natalie Castellanos FINAL DISCHARGE DISPOSITION: : FINAL REVIEWER: FINAL REVIEW DATE: DCP Focus Questions & Answers QUESTION: ANSWER : PATIENT: AVIVA WELCH ENCOUNTER: [id number] MEDICAL RECORD#: [id number] ADMISSION DATE: 12/23/2020 DISCHARGE DATE: ATTENDING MD: MISAEL KRISHNAN : AGE: 20 MARITAL STATUS: S DC PLAN ID: [id number] FACILITY: [facility] PRINTED ON: 12/29/20 10:53 CT All edits/amendments must be made on the electronic document DICTATION DATE: 12/29/201052 FUR STORAGE CLERK: SHAREE 12/29/20 1053 RPT#: [id number] DC DATE: STATUS: ADM IN [facility] [address] [place] [address] END OF REPORT
--- NOTE | 2020-12-29 11:00 | NUR ---
PT RETURNED TO ROOM FROM SPINAL TAP. IR NURSE RACHELE HAVING PROBLEMS GETTING PT TO LAY FLAT. INSTUCTED MOM, DAD AND PT IMPORTANCE OF LAYING FLAT. PT COMPLAINING OF PAIN /. CALLED FOR AN ORDER FOR IV PAIN MEDS. HE INSTRUCTED ME TO RE ORDER WHAT WAS STARTED WHEN SHE WAS ADMITTED. WILL CTM
--- NOTE | 2020-12-29 12:01 | MORECARE ---
CASE MANAGEMENT DISCHARGE SUMMARY PATIENT: AVIVA WELCH UNIT: [id number] ADM DATE: 12/23/20 AGE: 20 : 00 SEX: F ROOM/BED: D.2306 AUTHOR: ARTHUR,DOC PHYSICIAN: REFERRING PHYSICIAN: MISAEL MACDONALD MD DATE OF SERVICE: 12/29/20 Case Management Discharge Planning Summary COMMENTS ENTERED DATE: 12/29/20 10:49 CT COMMENT TYPE: Discharge Planning REVIEWER: Natalie Castellanos CM called [facility] to check on status of transfer request. CM spoke with Sandeep who informed CM that patient is on waiting list for ICU bed. States he did not anticipate one becoming available today. ENTERED DATE: 12/28/20 18:27 CT COMMENT TYPE: Discharge Planning REVIEWER: Marcie Douglas LATE ENTRY 1230 CM NOTIFIED OF ORDER FOR TRANSFERE TO [facility] FOR RHEUMATOLOGY SERVICES. PERSONAL CELL OBTAIN FROM DR MACDONALD'S OFFICE FOR DR MC ALVARADO COMMUNICATION. CM ADVISED PRIMARY TO START TRANSFER PACKET AND OBTAIN XRAYS ON DISC. PATIENT WILL HAVE MRI OF HEAD AND EEG TODAY. TELEPHONE TO [facility] PHYSICIAN CENTER. NURSE NOT AVAILABLE DUE TO VOLUME OF REQUEST. KUSHAL OBTAINED INFORMATION TO FORWARD AND CM WILL BE CALLED BACK BY NURSE WHEN AVAILABLE. 2 1/2 HRS- NO NOTIFICATION. CM CALLED BACK TO [facility]. AWAIT NURSE CB. SPOKE W/ HOA NO AVAILABLE ICU BEDS. [facility] ALSO ON ER DIVERSION. TC TO [facility] [phone]. LEFT VOICE MAIL MESSAGE. NO CB UNTIL THIS TIME. TC TO [facility] IN [place]- NO AVAILABLE BED. DR ROWAN, NEUROLOGY VISITED. CM OBTAINED MD CALL CENTER TO REQUESTED INFORMATION ON RHEUMATOLOGY OFFICE. THE PATIENT MOTHER HAD BEEN CALLED. SHE GAVE THE NAME OF HER APPEALS AND GENERALIST CLERK. ROTOR PILOT AT [facility] ATTEMPTED TO REACH. THE OFICES HAD CLOSED FOR THE DAY. CB TO PHYSICIAN CALL CENTER. DR ROWAN EXPLAINED SITUATION IN GREATER DETAIL. HE DISCUSSED REFERRAL TO NEUROLOGY. HE PROVIDED HIS PHONE NUMBER FOR NEUROLOGY SERVICE. HE WAS ABLE TO SPEAK WITH NEURO MD THAT WAS MACHINE OPERATORS. PROVIDED DETAILED UPDATE. THE PATIENT REQUEST HAS BEEN MOVED TO HIGHER STATUS. RECOMMENDATION WERE GIVEN TO DR ROWAN. HE HAS SPOKEN W/ LAB AND ORDERED SUGGESTED. ADDITIONAL MEDS HAVE BEEN ADDED. X/R DISC ON PATIENT CHART. TRANSFER PAPERWORK W/ DR ROWAN SIGNATURE ON CHART. NURES TO COMPLETE WHEN BED OBTAINED. AWAIT FAX OF TRANSFER BACK AGREEMENT FROM [facility]. DCP REVIEW SUMMARY ANTICIPATED D/C DATE: EXPECTED LOS : CASE STATUS: DCP Initiated INITIAL REVIEW: 12/22/2020 INITIAL REVIEWER: Natalie Castellanos FINAL DISCHARGE DISPOSITION: : FINAL REVIEWER: FINAL REVIEW DATE: DCP Focus Questions & Answers QUESTION: ANSWER : PATIENT: AVIVA WELCH ENCOUNTER: [id number] MEDICAL RECORD#: [id number] ADMISSION DATE: 12/23/2020 DISCHARGE DATE: ATTENDING MD: MISAEL KRISHNAN : AGE: 20 MARITAL STATUS: S DC PLAN ID: [id number] FACILITY: [facility] PRINTED ON: 12/29/20 12:01 CT All edits/amendments must be made on the electronic document DICTATION DATE: 12/29/201200 OCCUPATIONAL HEALTH COORDINATOR: SHAREE 12/29/201200 RPT#: [id number] DC DATE: STATUS: ADM IN [facility] [address] [place] [address] END OF REPORT
[2020-12-29 12:05] LABS: GLUCOSE - CSF 87 MG/DL (40-75); PROTEIN - CSF 35 MG/DL (12-60)
--- NOTE | 2020-12-29 12:09 | NUR ---
MIDLINE SITED IN RIGHT UPPER ARM PER BASILIC VEIN WITH 8CM 20G. ARM CIRCUMFRANCE 26 CM.
[2020-12-29 13:33] LABS: CALC OSMOLALITY 280 mosm/kg (275-300); CALCIUM 8.1 mg/dL (8.5-10.1); CARBON DIOXIDE 28.4 mmol/L (21.0-32.0); CHLORIDE - SERUM 105 mmol/L (98-107); CREATININE - SERUM 0.6 mg/dL (0.6-1.3); GLUCOSE 136 mg/dL (74-106); SODIUM 140 mmol/L (136-145); UREA NITROGEN 13 mg/dL (7-18); eGFR NON AFRICAN AMERICAN > 90 mL/min (90-120)
[2020-12-29 13:42] LABS: APPEARANCE - CSF COLORLESS; RBC - CSF 20 cmm (0-0)
[2020-12-29 13:45] LABS: BASOPHILS 0.1 % (0-2); EOSINOPHILS 0.1 % (0-7); HEMATOCRIT 28.4 % (36.0-48.0); HEMOGLOBIN 9.3 g/dL (12-16); LYMPHOCYTES 2.7 % (15-50); MCH 25.4 pg (26.0-34.0); MCHC 32.8 g/dL (31.0-37.0); MEAN PLATELET VOLUME 7.5 fL (7.4-10.4); MONOCYTES 3.7 % (2-11); NEUTROPHILS 93.4 % (40-80); RBC 3.67 10x6/uL (4.00-5.40); RDW 18.8 % (11.5-14.5)
[2020-12-29 13:54] LABS: MCV 77.3 fL (80.0-100.0); PLATELET COUNT 149 10x3/uL (130-400); WBC 7.7 10x3/uL (4.8-10.8)
[2020-12-29 14:50] LABS: ERYTHROCYTE SEDIMENTATION RATE 21 mm/hr (0-20)
--- NOTE | 2020-12-29 18:39 | NUR ---
VERBAL ORDERS GIVEN FOR A 1 TIME DOSE OF 40MG LASIX PER . WILL CTM
[2020-12-30] VITALS (54 sets, daily range): BP systolic 67–195; BP diastolic 44–119
--- NOTE | 2020-12-30 10:10 | NUR ---
PT RESTING IN BED WITH EYES CLOSED, NO SIGNS OF DISTRESS, VS STABLE, BP SLIGHTLY HIGHER THAN THIS MORNING, FOC AT BEDSIDE
--- NOTE | 2020-12-30 11:25 | NUR ---
SPOKE WITH SABI BRANDON TO CONSULT CARDIOLOGY OBTAINED FOR UNCONTROLLED HYPERTENSION AND INCREASED PULSE RATE
--- NOTE | 2020-12-30 12:12 | NUR ---
Nutrition reassessment: Diet order: Regular as tolerated PO Intake has decreased since moving to ICU BP running high Labs reviewed Ht: 5'5" Wt: 105# +BM Estimated needs, nutrition diangosis, goals, interventions remain the same as initial assessment on 12/23/20. Recommendations: Due to decreased po intake pt might benefit from ProcalAmine PPN @ 50 ml/hr Will continue to provide food choices and honor food preferences. Will offer nutritional supplements. RDN will follow-up on pts progress toward nutrition goals in 3-5 days.
--- NOTE | 2020-12-30 13:27 | EEG ---
PATIENT:AVIVA WELCH MEDICAL RECORD: [id number] DATE OF : 00 LOCATION:D.230 D.ICU ADMISSION DATE: 12/23/20 REFERRING PHYSICIAN: INTERPRETING PHYSICIAN: MICHELLE GARCIA MD DATE OF SERVICE: 12/28/2020 DATE OF EE12/28/2020 ROOM NUMBER: [id number] ORDERED BY: Dr. Garcia. CASE HISTORY: A 20-year-old female admitted to treat intractable pain with known history of lupus, was found in her hospital room this morning, nonresponsive, demonstrating nursing report of seizure activity and SVT, and was loaded with Keppra and labetalol. CT of head demonstrated areas of hypoattenuation within the supratentorial and infratentorial brain discordant for patient age with differential of infarcts, demyelination, unusual microvascular ischemic change, or neoplastic disease. PROCEDURE: EEG done as a routine bedside portable recording using the standard 10-20 international electrode system. A 16 channel was used with 17th as EKG. Photic stimulation was done as activation procedure. DESCRIPTION OF PROCEDURE: EEG opens with the patient poorly responsive with the record displaying diffuse background slowing in the theta and prominent delta range with large portions of the record obscured by EMG motor artifact. Best background organization at times was seen at 6-7 Hz. Occasional right hemispheric sharp activities were seen prominently in the parietal and temporal regions. Photic stimulation did not yield a significant driving response and there was no photomyogenic or photoparoxysmal response seen. No epileptiform change such as spike, polyspike, or spike and wave was observed. IMPRESSION: Moderately abnormal EEG with diffuse background slowing that could suggest encephalopathy, but also be consistent with postictal slowing. No active seizure focus was observed in this recording. TRANSINT:[id number] Voice Confirmation ID: [id number] DOCUMENT ID: [id number] MICHELLE GARCIA MD at 1327 CC: [id number] DICTATION DATE: 12/28/20 1539 QA SPECIALIST: 12/28/20 1604 ADM IN [facility] [address] [place] [address]
--- NOTE | 2020-12-30 14:56 | NUR ---
PT MOC GAVE HER A BED BATH, PT COMPLAINED OF 5/10 PAIN IN HER HEAD, GAVE PT NORCO 5MG WHICH SHE TOOK WELL, PT RESTING COMFORTABLY NOW, MOC AT BEDSIDE
--- NOTE | 2020-12-30 15:08 | NUR ---
EVARISTO WITH [facility] CALLED TO CHECK ON PT, STILL NO BED AVAILABLE YET, WILL KEEP PT ON WAITING LIST AND LET US KNOW SOON THEY HAVE A BED
[2020-12-31] VITALS (68 sets, daily range): BP systolic 103–161; BP diastolic 62–114
--- NOTE | 2020-12-31 10:14 | MORECARE ---
CASE MANAGEMENT DISCHARGE SUMMARY PATIENT: AVIVA WELCH UNIT: [id number] ADM DATE: 12/23/20 AGE: 20 : 00 SEX: F ROOM/BED: D.2306 AUTHOR: ARTHUR,DOC PHYSICIAN: REFERRING PHYSICIAN: MISAEL MACDONALD MD DATE OF SERVICE: 12/31/20 Case Management Discharge Planning Summary COMMENTS ENTERED DATE: 12/31/20 10:11 CT COMMENT TYPE: Discharge Planning REVIEWER: Natalie Castellanos CM called [facility] to check on status of transfer request. No beds available. Patient on wait list. Was also told that hospital was holding patients in their ER and they only had one projected discharge from ICU today. ENTERED DATE: 12/31/20 10:08 CT COMMENT TYPE: Discharge Planning REVIEWER: Natalie Castellanos Late entry 12/30/20 CM notified by ICU nurse that patient's mom has requested CM attempt transfer to [facility]. CM spoke with patient's mom about request. She informed CM that patient was seen there in the past and she thought they might accept patient. CM called [facility]. Faxed records as requested. CM received call back that they declined patient. States they have not seen patient since 2017 and they referred patient to a Sounding Device Operator at [facility] at that time. CM called [facility] to check on status of transfer request. No beds available. Patient on waiting list. CM informed patient and her mother on declined request at [facility] and on wait list at [facility]. Both verbalized understanding. ENTERED DATE: 12/29/20 10:49 CT COMMENT TYPE: Discharge Planning REVIEWER: Natalie Castellanos CM called [facility] to check on status of transfer request. AMY spoke with Sandeep who informed CM that patient is on waiting list for ICU bed. States he did not anticipate one becoming available today. ENTERED DATE: 12/28/20 18:27 CT COMMENT TYPE: Discharge Planning REVIEWER: Marcie Douglas LATE ENTRY 1230 CM NOTIFIED OF ORDER FOR TRANSFERE TO [facility] FOR RHEUMATOLOGY SERVICES. PERSONAL CELL OBTAIN FROM DR MACDONALD'S OFFICE FOR DR TO COMMUNICATION. CM ADVISED PRIMARY TO START TRANSFER PACKET AND OBTAIN XRAYS ON DISC. PATIENT WILL HAVE MRI OF HEAD AND EEG TODAY. TELEPHONE TO [facility] PHYSICIAN CENTER. NURSE NOT AVAILABLE DUE TO VOLUME OF REQUEST. KUSHAL OBTAINED INFORMATION TO FORWARD AND CM WILL BE CALLED BACK BY NURSE WHEN AVAILABLE. 2 1/2 HRS- NO NOTIFICATION. CM CALLED BACK TO [facility]. AWAIT NURSE CB. SPOKE W/ HOA NO AVAILABLE ICU BEDS. [facility] ALSO ON ER DIVERSION. TC TO [facility] [phone]. LEFT VOICE MAIL MESSAGE. NO CB UNTIL THIS TIME. TC TO [facility] IN [place]- NO AVAILABLE BED. DR ROWAN, NEUROLOGY VISITED. CM OBTAINED MD CALL CENTER TO REQUESTED INFORMATION ON RHEUMATOLOGY OFFICE. THE PATIENT MOTHER HAD BEEN CALLED. SHE GAVE THE NAME OF HER CLAY DRY PRESS HELPER. INSPECTOR HAIRSPRING AT [facility] ATTEMPTED TO REACH. THE OFICES HAD CLOSED FOR THE DAY. CB TO PHYSICIAN CALL CENTER. DR ROWAN EXPLAINED SITUATION IN GREATER DETAIL. HE DISCUSSED REFERRAL TO NEUROLOGY. HE PROVIDED HIS PHONE NUMBER FOR NEUROLOGY SERVICE. HE WAS ABLE TO SPEAK WITH NEURO MD THAT WAS ARMORED CAR GUARD. PROVIDED DETAILED UPDATE. THE PATIENT REQUEST HAS BEEN MOVED TO HIGHER STATUS. RECOMMENDATION WERE GIVEN TO DR ROWAN. HE HAS SPOKEN W/ LAB AND ORDERED SUGGESTED. ADDITIONAL MEDS HAVE BEEN ADDED. X/R DISC ON PATIENT CHART. TRANSFER PAPERWORK W/ DR ROWAN SIGNATURE ON CHART. NURES TO COMPLETE WHEN BED OBTAINED. AWAIT FAX OF TRANSFER BACK AGREEMENT FROM [facility]. OHP REVIEW SUMMARY ANTICIPATED D/C DATE: EXPECTED LOS : CASE STATUS: DCP Initiated INITIAL REVIEW: 12/22/2020 INITIAL REVIEWER: Natalie Castellanos FINAL DISCHARGE DISPOSITION: : FINAL REVIEWER: FINAL REVIEW DATE: DCP Focus Questions & Answers QUESTION: ANSWER : PATIENT: AVIVA EWLCH ENCOUNTER: [id number] MEDICAL RECORD#: [id number] ADMISSION DATE: 12/23/2020 DISCHARGE DATE: ATTENDING MD: MISAEL KRISHNAN : AGE: 20 MARITAL STATUS: S DC PLAN ID: [id number] FACILITY: [facility] PRINTED ON: 12/31/20 10:14 CT All edits/amendments must be made on the electronic document DICTATION DATE: 12/31/20 1014 SALES REPRESENTATIVE GIRLS' APPAREL: SHAREE 12/31/20 1014 RPT#: [id number] DC DATE: STATUS: ADM IN [facility] [address] [place] [address] END OF REPORT
--- NOTE | 2020-12-31 10:59 | NUR ---
DIASTOLIC BP STAYING >150. PRN LABETELOL GIVEN. DAD AT BEDSIDE.
--- NOTE | 2020-12-31 12:09 | NUR ---
DR ROWAN IN ROOM WITH PT AND FAMILY AT THIS TIME.
--- NOTE | 2020-12-31 12:21 | NUR ---
DR PAIGE ROUNDING ON PT.
--- NOTE | 2020-12-31 14:27 | NUR ---
WORK EXCUSE GIVEN TO PT'S DAD PER REQUEST/CM. PT RESTING QUIETLY. VSS.
[2020-12-31 16:09] LABS: FUNGUS STAIN Final report (())
[2021-01-01] VITALS (74 sets, daily range): BP systolic 121–154; BP diastolic 64–108
--- NOTE | 2021-01-01 09:40 | NUR ---
SITTING UP IN BED AT THIS TIME, MOM AT BEDSIDE. CHG BATH PROVIDED WITH MOM ASSIST. VSS. NO ACUTE DISTRESS NOTED. CALL LIGHT AND PERSONAL ITEMS IN REACH. WILL CONTINUE PLAN OF CARE.
[2021-01-01 10:11] LABS: BASOPHILS 0.4 % (0-2); EOSINOPHILS 0 % (0-7); HEMATOCRIT 29.6 % (36.0-48.0); HEMOGLOBIN 9.7 g/dL (12-16); LYMPHOCYTES 3.7 % (15-50); MCH 25.8 pg (26.0-34.0); MCHC 32.9 g/dL (31.0-37.0); MCV 78.4 fL (80.0-100.0); MEAN PLATELET VOLUME 7.5 fL (7.4-10.4); NEUTROPHILS 90.9 % (40-80); PLATELET COUNT 167 10x3/uL (130-400); RBC 3.78 10x6/uL (4.00-5.40); RDW 19.1 % (11.5-14.5); WBC 6.1 10x3/uL (4.8-10.8)
[2021-01-01 10:34] LABS: ALBUMIN 2.7 g/dL (3.4-5.0); ALKALINE PHOSPHATASE 63 U/L (30-120); ALT (SGPT) 26 U/L (10-68); BILIRUBIN - TOTAL 0.57 mg/dL (0.2-1.3); CALC OSMOLALITY 277 mosm/kg (275-300); CALCIUM 8.3 mg/dL (8.5-10.1); CARBON DIOXIDE 30.5 mmol/L (21.0-32.0); CHLORIDE - SERUM 101 mmol/L (98-107); CREATININE - SERUM 0.8 mg/dL (0.6-1.3); GLUCOSE 141 mg/dL (74-106); PROTEIN - SERUM 7.1 g/dL (6.4-8.2); SODIUM 138 mmol/L (136-145); UREA NITROGEN 12 mg/dL (7-18); eGFR NON AFRICAN AMERICAN > 90 mL/min (90-120)
--- NOTE | 2021-01-01 14:59 | NUR ---
DR ROAWN HAS ROUNDED ON PT. STATED TO STOP ACYCLOVIR AFTER THE FINAL DOSE TOMORROW EVENING. ALSO PER EMAR THE SOLUMEDROL IS TO DC AFTER 0900 DOSE, HE STATED TO ADD ONE MORE DOSE AT 2100 THAT EVENING FOR FINAL DOSE SO THAT BOTH MEDS HAVE BEEN GIVEN FOR 5 DAYS TOTAL. ORDERED KEEPRA LEVEL TODAY. STATED WILL REEVAL TOMORROW.
[2021-01-02] VITALS (59 sets, daily range): BP systolic 119–146; BP diastolic 78–105
--- NOTE | 2021-01-02 08:00 | NUR ---
ALERT AND ORIENTED X4. IVF INFUSING AND MONITORING PER ORDERS VIA RIGHT MIDLINE WITH; NO S/S OF INFECTION/INFILTRATION. SWARTZ CATH PATENT WITH SALVADOR URINE. ABDOMEN SOFT WITH BOWEL SOUNDS NOTED X4. LUNGS CTA.DEMONSTRED INCENTIVE SPIROMETRY.
--- NOTE | 2021-01-02 10:00 | NUR ---
NO CHANGE IN CONDITION. RESTING WITH EYES CLOSED. RESP EVEN AND UNLABORED NO S/S OF HYPER/HYPOTENSION WITH B/P MONIOTORING WITH CLEVIPREX INFUSING AT 1.9CC/HR
--- NOTE | 2021-01-02 12:00 | NUR ---
POOR APPETITE AT TIMES. MMIDLINE INTACT. DENIES ANY PAIN OR DISCOMFORT. FAMILY PRESENT AND ENCOURAGED TO USE CALL LIGHT FOR ASSSIT.
--- NOTE | 2021-01-02 14:00 | NUR ---
RECEIVED CALL FROM [facility] FROM [facility] FOR UPDATE WITH ROOM ASSIGNED TO E427 FOR THIS PATIENT. REPORT CALLED TO KATTY HEAD RN. PATIENT RESTING WITH EYES CLOSED WITH NO SIZURES OR CHANGE IN COGNITIVE STATUS. HOUSE SUPERVISIOR NOTIFIED
--- NOTE | 2021-01-02 14:26 | NUR ---
PER [facility] AT [facility], PT HAS BEEN ACCEPTED AND HAS A ROOM AVALIABLE. SHE WILL GO TO ROOM E427. WILL CALL REPORT TO KATTY HEAD RN. ACCEPTING PHYSICIAN IS DR. CLARKE. PT AND HER MOTHER ARE MADE AWARE OF THIS.
--- NOTE | 2021-01-02 14:44 | MORECARE ---
CASE MANAGEMENT DISCHARGE SUMMARY PATIENT: AVIVA WELCH UNIT: [id number] ADM DATE: 12/23/20 AGE: 20 : 00 SEX: F ROOM/BED: D.2306 AUTHOR: ARTHUR,DOC PHYSICIAN: REFERRING PHYSICIAN: MISAEL MACDONALD MD DATE OF SERVICE: 01/02/21 Case Management Discharge Planning Summary COMMENTS ENTERED DATE: 01/02/21 14:42 CT COMMENT TYPE: Discharge Planning REVIEWER: Zofia Caldwell [facility] called unit nurse with notification of bed availability. Report and ambulance called by nurse. CM will cont to follow until transfer occurs ENTERED DATE: 12/31/20 10:11 CT COMMENT TYPE: Discharge Planning REVIEWER: Natalie Castellanos CM called [facility] to check on status of transfer request. No beds available. Patient on wait list. Was also told that hospital was holding patients in their ER and they only had one projected discharge from ICU today. ENTERED DATE: 12/31/20 10:08 CT COMMENT TYPE: Discharge Planning REVIEWER: Natalie Castellanos Late entry 12/30/20 CM notified by ICU nurse that patient's mom has requested CM attempt transfer to [facility]. CM spoke with patient's mom about request. She informed CM that patient was seen there in the past and she thought they might accept patient. CM called [facility]. Faxed records as requested. CM received call back that they declined patient. States they have not seen patient since 2017 and they referred patient to a Real Estate Agency Principal at [facility] at that time. CM called [facility] to check on status of transfer request. No beds available. Patient on waiting list. CM informed patient and her mother on declined request at [facility] and on wait list at [facility]. Both verbalized understanding. ENTERED DATE: 12/29/20 10:49 CT COMMENT TYPE: Discharge Planning REVIEWER: Natalie Castellanos CM called [facility] to check on status of transfer request. CM spoke with Sandeep who informed CM that patient is on waiting list for ICU bed. States he did not anticipate one becoming available today. ENTERED DATE: 12/28/20 18:27 CT COMMENT TYPE: Discharge Planning REVIEWER: Marcie Douglas LATE ENTRY 1230 CM NOTIFIED OF ORDER FOR TRANSFERE TO [facility] FOR RHEUMATOLOGY SERVICES. PERSONAL CELL OBTAIN FROM DR MACDONALD'S OFFICE FOR DR TO DR DONG. CM ADVISED PRIMARY TO START TRANSFER PACKET AND OBTAIN XRAYS ON DISC. PATIENT WILL HAVE MRI OF HEAD AND EEG TODAY. TELEPHONE TO [facility] PHYSICIAN CENTER. NURSE NOT AVAILABLE DUE TO VOLUME OF REQUEST. KUSHAL OBTAINED INFORMATION TO FORWARD AND CM WILL BE CALLED BACK BY NURSE WHEN AVAILABLE. 2 1/2 HRS- NO NOTIFICATION. AMY CALLED BACK TO [facility]. AWAIT NURSE CB. SPOKE W/ HOA NO AVAILABLE ICU BEDS. [facility] ALSO ON ER DIVERSION. TC TO [facility] [phone]. LEFT VOICE MAIL MESSAGE. NO CB UNTIL THIS TIME. TC TO [facility] IN [place]- NO AVAILABLE BED. DR ROWAN, NEUROLOGY VISITED. AMY OBTAINED MD CALL CENTER TO REQUESTED INFORMATION ON RHEUMATOLOGY OFFICE. THE PATIENT MOTHER HAD BEEN CALLED. SHE GAVE THE NAME OF HER OPERATOR CAVITY PUMP. BIOCHEMISTRY PROFESSOR AT [facility] ATTEMPTED TO REACH. THE OFICES HAD CLOSED FOR THE DAY. CB TO PHYSICIAN CALL CENTER. DR ROWAN EXPLAINED SITUATION IN GREATER DETAIL. HE DISCUSSED REFERRAL TO NEUROLOGY. HE PROVIDED HIS PHONE NUMBER FOR NEUROLOGY SERVICE. HE WAS ABLE TO SPEAK WITH NEURO MD THAT WAS SERVICE CAR OPERATOR. PROVIDED DETAILED UPDATE. THE PATIENT REQUEST HAS BEEN MOVED TO HIGHER STATUS. RECOMMENDATION WERE GIVEN TO DR ROWAN. HE HAS SPOKEN W/ LAB AND ORDERED SUGGESTED. ADDITIONAL MEDS HAVE BEEN ADDED. X/R DISC ON PATIENT CHART. TRANSFER PAPERWORK W/ DR ROWAN SIGNATURE ON CHART. NURES TO COMPLETE WHEN BED OBTAINED. AWAIT FAX OF TRANSFER BACK AGREEMENT FROM [facility]. DCP REVIEW SUMMARY ANTICIPATED D/C DATE: EXPECTED LOS : CASE STATUS: DCP Initiated INITIAL REVIEW: 12/22/2020 INITIAL REVIEWER: Natalie Castellanos FINAL DISCHARGE DISPOSITION: : FINAL REVIEWER: FINAL REVIEW DATE: DCP Focus Questions & Answers QUESTION: ANSWER : PATIENT: AVIVA WELCH ENCOUNTER: [id number] MEDICAL RECORD#: [id number] ADMISSION DATE: 12/23/2020 DISCHARGE DATE: ATTENDING MD: MISAEL KRISHNAN : AGE: 20 MARITAL STATUS: S DC PLAN ID: [id number] FACILITY: [facility] PRINTED ON: 01/02/21 14:44 CT All edits/amendments must be made on the electronic document DICTATION DATE: 01/02/211443 PNEUMATIC TUBE FITTER: SHAREE 01/02/211443 RPT#: [id number] DC DATE: STATUS: ADM IN [facility] [address] [place] [address] END OF REPORT
--- NOTE | 2021-01-02 14:56 | NUR ---
[facility] PATIENT NOTIFIED AND STABLE. NO CHANGES IN CONDITION.
--- NOTE | 2021-01-02 16:30 | NUR ---
[facility] HERE FOR TRANSPORT WITH STAFF X2 WITH REPORT GIVEN. STABLE AT TIME OF DISCHARGE
--- NOTE | 2021-01-02 17:09 | MORECARE ---
CASE MANAGEMENT DISCHARGE SUMMARY PATIENT: AVIVA WELCH UNIT: [id number] ADM DATE: 12/23/20 AGE: 20 : 00 SEX: F ROOM/BED: D.2306 AUTHOR: ARTHUR,DOC PHYSICIAN: REFERRING PHYSICIAN: MISAEL MACDONALD MD DATE OF SERVICE: 01/02/21 Case Management Discharge Planning Summary COMMENTS ENTERED DATE: 01/02/21 14:42 CT COMMENT TYPE: Discharge Planning REVIEWER: Zofia Caldwell [facility] called unit nurse with notification of bed availability. Report and ambulance called by nurse. CM will cont to follow until transfer occurs ENTERED DATE: 12/31/20 10:11 CT COMMENT TYPE: Discharge Planning REVIEWER: Natalie Castellanos CM called [facility] to check on status of transfer request. No beds available. Patient on wait list. Was also told that hospital was holding patients in their ER and they only had one projected discharge from ICU today. ENTERED DATE: 12/31/20 10:08 CT COMMENT TYPE: Discharge Planning REVIEWER: Natalie Castellanos Late entry 12/30/20 CM notified by ICU nurse that patient's mom has requested CM attempt transfer to [facility]. CM spoke with patient's mom about request. She informed CM that patient was seen there in the past and she thought they might accept patient. CM called [facility]. Faxed records as requested. CM received call back that they declined patient. States they have not seen patient since 2017 and they referred patient to a Bath Tester at [facility] at that time. CM called [facility] to check on status of transfer request. No beds available. Patient on waiting list. CM informed patient and her mother on declined request at [facility] and on wait list at [facility]. Both verbalized understanding. ENTERED DATE: 12/29/20 10:49 CT COMMENT TYPE: Discharge Planning REVIEWER: Natalie Castellanos CM called [facility] to check on status of transfer request. CM spoke with Sandeep who informed CM that patient is on waiting list for ICU bed. States he did not anticipate one becoming available today. ENTERED DATE: 12/28/20 18:27 CT COMMENT TYPE: Discharge Planning REVIEWER: Marcie Douglas LATE ENTRY 1230 CM NOTIFIED OF ORDER FOR TRANSFERE TO [facility] FOR RHEUMATOLOGY SERVICES. PERSONAL CELL OBTAIN FROM DR MACDONALD'S OFFICE FOR DR TO DR DONG. CM ADVISED PRIMARY TO START TRANSFER PACKET AND OBTAIN XRAYS ON DISC. PATIENT WILL HAVE MRI OF HEAD AND EEG TODAY. TELEPHONE TO [facility] PHYSICIAN CENTER. NURSE NOT AVAILABLE DUE TO VOLUME OF REQUEST. KUSHAL OBTAINED INFORMATION TO FORWARD AND CM WILL BE CALLED BACK BY NURSE WHEN AVAILABLE. 2 1/2 HRS- NO NOTIFICATION. AMY CALLED BACK TO [facility]. AWAIT NURSE CB. SPOKE W/ HOA NO AVAILABLE ICU BEDS. [facility] ALSO ON ER DIVERSION. TC TO [facility] [phone]. LEFT VOICE MAIL MESSAGE. NO CB UNTIL THIS TIME. TC TO [facility] IN [place]- NO AVAILABLE BED. DR ROWAN, NEUROLOGY VISITED. AMY OBTAINED MD CALL CENTER TO REQUESTED INFORMATION ON RHEUMATOLOGY OFFICE. THE PATIENT MOTHER HAD BEEN CALLED. SHE GAVE THE NAME OF HER CORK PAINTER AND GRADER. TELEPHONE ANSWERER AT [facility] ATTEMPTED TO REACH. THE OFICES HAD CLOSED FOR THE DAY. CB TO PHYSICIAN CALL CENTER. DR ROWAN EXPLAINED SITUATION IN GREATER DETAIL. HE DISCUSSED REFERRAL TO NEUROLOGY. HE PROVIDED HIS PHONE NUMBER FOR NEUROLOGY SERVICE. HE WAS ABLE TO SPEAK WITH NEURO MD THAT WAS FILM BOOKER. PROVIDED DETAILED UPDATE. THE PATIENT REQUEST HAS BEEN MOVED TO HIGHER STATUS. RECOMMENDATION WERE GIVEN TO DR ROWAN. HE HAS SPOKEN W/ LAB AND ORDERED SUGGESTED. ADDITIONAL MEDS HAVE BEEN ADDED. X/R DISC ON PATIENT CHART. TRANSFER PAPERWORK W/ DR ROWAN SIGNATURE ON CHART. NURES TO COMPLETE WHEN BED OBTAINED. AWAIT FAX OF TRANSFER BACK AGREEMENT FROM [facility]. DCP REVIEW SUMMARY ANTICIPATED D/C DATE: EXPECTED LOS : CASE STATUS: DCP Initiated INITIAL REVIEW: 12/22/2020 INITIAL REVIEWER: Natalie Castellanos FINAL DISCHARGE DISPOSITION: : FINAL REVIEWER: FINAL REVIEW DATE: DCP Focus Questions & Answers QUESTION: ANSWER : PATIENT: AVIVA WELCH ENCOUNTER: [id number] MEDICAL RECORD#: [id number] ADMISSION DATE: 12/23/2020 DISCHARGE DATE: 01/02/2021 ATTENDING MD: MISAEL KRISHNAN : AGE: 20 MARITAL STATUS: S DC PLAN ID: [id number] FACILITY: [facility] PRINTED ON: 01/02/21 17:09 CT All edits/amendments must be made on the electronic document DICTATION DATE: 01/02/211708 HANDYMAN: SHAREE 01/02/211708 RPT#: [id number] DC DATE:01/02/21 STATUS: DIS IN [facility] [address] [place] [address] END OF REPORT
--- NOTE | 2021-01-03 12:26 | MORECARE ---
CASE MANAGEMENT DISCHARGE SUMMARY PATIENT: AVIVA WELCH UNIT: [id number] ADM DATE: 12/23/20 AGE: 20 : 00 SEX: F ROOM/BED: D.2306 AUTHOR: ARTHUR,DOC PHYSICIAN: REFERRING PHYSICIAN: MISAEL MACDONALD MD DATE OF SERVICE: 01/03/21 Case Management Discharge Planning Summary COMMENTS ENTERED DATE: 01/02/21 14:42 CT COMMENT TYPE: Discharge Planning REVIEWER: Zofia Caldwell [facility] called unit nurse with notification of bed availability. Report and ambulance called by nurse. CM will cont to follow until transfer occurs ENTERED DATE: 12/31/20 10:11 CT COMMENT TYPE: Discharge Planning REVIEWER: Natalie Castellanos CM called [facility] to check on status of transfer request. No beds available. Patient on wait list. Was also told that hospital was holding patients in their ER and they only had one projected discharge from ICU today. ENTERED DATE: 12/31/20 10:08 CT COMMENT TYPE: Discharge Planning REVIEWER: Natalie Castellanos Late entry 12/30/20 CM notified by ICU nurse that patient's mom has requested CM attempt transfer to [facility]. CM spoke with patient's mom about request. She informed CM that patient was seen there in the past and she thought they might accept patient. CM called [facility]. Faxed records as requested. CM received call back that they declined patient. States they have not seen patient since 2017 and they referred patient to a Insurance Adjuster at [facility] at that time. CM called [facility] to check on status of transfer request. No beds available. Patient on waiting list. CM informed patient and her mother on declined request at [facility] and on wait list at [facility]. Both verbalized understanding. ENTERED DATE: 12/29/20 10:49 CT COMMENT TYPE: Discharge Planning REVIEWER: Natalie Castellanos CM called [facility] to check on status of transfer request. CM spoke with Sandeep who informed CM that patient is on waiting list for ICU bed. States he did not anticipate one becoming available today. ENTERED DATE: 12/28/20 18:27 CT COMMENT TYPE: Discharge Planning REVIEWER: Marcie Douglas LATE ENTRY 1230 CM NOTIFIED OF ORDER FOR TRANSFERE TO [facility] FOR RHEUMATOLOGY SERVICES. PERSONAL CELL OBTAIN FROM DR MACDONALD'S OFFICE FOR DR TO DR DONG. CM ADVISED PRIMARY TO START TRANSFER PACKET AND OBTAIN XRAYS ON DISC. PATIENT WILL HAVE MRI OF HEAD AND EEG TODAY. TELEPHONE TO [facility] PHYSICIAN CENTER. NURSE NOT AVAILABLE DUE TO VOLUME OF REQUEST. KUSHAL OBTAINED INFORMATION TO [facility] AND CM WILL BE CALLED BACK BY NURSE WHEN AVAILABLE. 2 1/2 HRS- NO NOTIFICATION. AMY CALLED BACK TO [facility]. AWAIT NURSE CB. SPOKE W/ HOA NO AVAILABLE ICU BEDS. [facility] ALSO ON ER DIVERSION. TC TO [facility] [phone]. LEFT VOICE MAIL MESSAGE. NO CB UNTIL THIS TIME. TC TO [facility] IN [place]- NO AVAILABLE BED. DR ROWAN, NEUROLOGY VISITED. AMY OBTAINED MD CALL CENTER TO REQUESTED INFORMATION ON RHEUMATOLOGY OFFICE. THE PATIENT MOTHER HAD BEEN CALLED. SHE GAVE THE NAME OF HER DISPENSING OPTICIAN APPRENTICE. HADOOP SOFTWARE ENGINEER AT [facility] ATTEMPTED TO REACH. THE OFICES HAD CLOSED FOR THE DAY. CB TO PHYSICIAN CALL CENTER. DR ROWAN EXPLAINED SITUATION IN GREATER DETAIL. HE DISCUSSED REFERRAL TO NEUROLOGY. HE PROVIDED HIS PHONE NUMBER FOR NEUROLOGY SERVICE. HE WAS ABLE TO SPEAK WITH NEURO MD THAT WAS FORGESMITH. PROVIDED DETAILED UPDATE. THE PATIENT REQUEST HAS BEEN MOVED TO HIGHER STATUS. RECOMMENDATION WERE GIVEN TO DR ROWAN. HE HAS SPOKEN W/ LAB AND ORDERED SUGGESTED. ADDITIONAL MEDS HAVE BEEN ADDED. X/R DISC ON PATIENT CHART. TRANSFER PAPERWORK W/ DR ROWAN SIGNATURE ON CHART. NURES TO COMPLETE WHEN BED OBTAINED. AWAIT FAX OF TRANSFER BACK AGREEMENT FROM [facility]. DCP REVIEW SUMMARY ANTICIPATED D/C DATE: EXPECTED LOS : CASE STATUS: DCP Initiated INITIAL REVIEW: 12/22/2020 INITIAL REVIEWER: Natalie Castellanos FINAL DISCHARGE DISPOSITION: : FINAL REVIEWER: FINAL REVIEW DATE: DCP Focus Questions & Answers QUESTION: ANSWER : PATIENT: AVIVA WELCH ENCOUNTER: [id number] MEDICAL RECORD#: [id number] ADMISSION DATE: 12/23/2020 DISCHARGE DATE: 01/02/2021 ATTENDING MD: MISAEL KRISHNAN : AGE: 20 MARITAL STATUS: S DC PLAN ID: [id number] FACILITY: [facility] PRINTED ON: 01/03/21 12:26 CT All edits/amendments must be made on the electronic document DICTATION DATE: 01/03/211225 PROJECTION ENGINEER: SHAREE 01/03/21 1226 RPT#: [id number] DC DATE:01/02/21 STATUS: DIS IN [facility] [address] [place] [address] END OF REPORT
--- NOTE | 2021-01-03 16:20 | MORECARE ---
CASE MANAGEMENT DISCHARGE SUMMARY PATIENT: AVIVA WELCH UNIT: [id number] ADM DATE: 12/23/20 AGE: 20 : 00 SEX: F ROOM/BED: D.2306 AUTHOR: ARTHUR,DOC PHYSICIAN: REFERRING PHYSICIAN: MISAEL MACDONALD MD DATE OF SERVICE: 01/03/21 Case Management Discharge Planning Summary COMMENTS ENTERED DATE: 01/02/21 14:42 CT COMMENT TYPE: Discharge Planning REVIEWER: Zofia Caldwell [facility] called unit nurse with notification of bed availability. Report and ambulance called by nurse. CM will cont to follow until transfer occurs ENTERED DATE: 12/31/20 10:11 CT COMMENT TYPE: Discharge Planning REVIEWER: Natalie Castellanos CM called [facility] to check on status of transfer request. No beds available. Patient on wait list. Was also told that hospital was holding patients in their ER and they only had one projected discharge from ICU today. ENTERED DATE: 12/31/20 10:08 CT COMMENT TYPE: Discharge Planning REVIEWER: Natalie Castellanos Late entry 12/30/20 CM notified by ICU nurse that patient's mom has requested CM attempt transfer to [facility]. CM spoke with patient's mom about request. She informed CM that patient was seen there in the past and she thought they might accept patient. CM called [facility]. Faxed records as requested. CM received call back that they declined patient. States they have not seen patient since 2017 and they referred patient to a Mobile Plant Operators at [facility] at that time. CM called [facility] to check on status of transfer request. No beds available. Patient on waiting list. CM informed patient and her mother on declined request at [facility] and on wait list at [facility]. Both verbalized understanding. ENTERED DATE: 12/29/20 10:49 CT COMMENT TYPE: Discharge Planning REVIEWER: Natalie Castellanos CM called [facility] to check on status of transfer request. CM spoke with Sandeep who informed CM that patient is on waiting list for ICU bed. States he did not anticipate one becoming available today. ENTERED DATE: 12/28/20 18:27 CT COMMENT TYPE: Discharge Planning REVIEWER: Marcie Douglas LATE ENTRY 1230 CM NOTIFIED OF ORDER FOR TRANSFERE TO [facility] FOR RHEUMATOLOGY SERVICES. PERSONAL CELL OBTAIN FROM DR MACDONALD'S OFFICE FOR DR TO DR DONG. CM ADVISED PRIMARY TO START TRANSFER PACKET AND OBTAIN XRAYS ON DISC. PATIENT WILL HAVE MRI OF HEAD AND EEG TODAY. TELEPHONE TO [facility] PHYSICIAN CENTER. NURSE NOT AVAILABLE DUE TO VOLUME OF REQUEST. KUSHAL OBTAINED INFORMATION TO [facility] AND CM WILL BE CALLED BACK BY NURSE WHEN AVAILABLE. 2 1/2 HRS- NO NOTIFICATION. AMY CALLED BACK TO [facility]. AWAIT NURSE CB. SPOKE W/ HOA NO AVAILABLE ICU BEDS. [facility] ALSO ON ER DIVERSION. TC TO [facility] [phone]. LEFT VOICE MAIL MESSAGE. NO CB UNTIL THIS TIME. TC TO [facility] IN [place]- NO AVAILABLE BED. DR ROWAN, NEUROLOGY VISITED. AMY OBTAINED MD CALL CENTER TO REQUESTED INFORMATION ON RHEUMATOLOGY OFFICE. THE PATIENT MOTHER HAD BEEN CALLED. SHE GAVE THE NAME OF HER UNDERCOLLAR MAKER. RESIDENTIAL CONCIERGE AT [facility] ATTEMPTED TO REACH. THE OFICES HAD CLOSED FOR THE DAY. CB TO PHYSICIAN CALL CENTER. DR ROWAN EXPLAINED SITUATION IN GREATER DETAIL. HE DISCUSSED REFERRAL TO NEUROLOGY. HE PROVIDED HIS PHONE NUMBER FOR NEUROLOGY SERVICE. HE WAS ABLE TO SPEAK WITH NEURO MD THAT WAS QUALITY CONTROL LEAD. PROVIDED DETAILED UPDATE. THE PATIENT REQUEST HAS BEEN MOVED TO HIGHER STATUS. RECOMMENDATION WERE GIVEN TO DR ROWAN. HE HAS SPOKEN W/ LAB AND ORDERED SUGGESTED. ADDITIONAL MEDS HAVE BEEN ADDED. X/R DISC ON PATIENT CHART. TRANSFER PAPERWORK W/ DR ROWAN SIGNATURE ON CHART. NURES TO COMPLETE WHEN BED OBTAINED. AWAIT FAX OF TRANSFER BACK AGREEMENT FROM [facility]. DCP REVIEW SUMMARY ANTICIPATED D/C DATE: EXPECTED LOS : CASE STATUS: DCP Initiated INITIAL REVIEW: 12/22/2020 INITIAL REVIEWER: Natalie Castellanos FINAL DISCHARGE DISPOSITION: : FINAL REVIEWER: FINAL REVIEW DATE: DCP Focus Questions & Answers QUESTION: ANSWER : PATIENT: AVIVA WELCH ENCOUNTER: [id number] MEDICAL RECORD#: [id number] ADMISSION DATE: 12/23/2020 DISCHARGE DATE: 01/02/2021 ATTENDING MD: MISAEL KRISHNAN : AGE: 20 MARITAL STATUS: S DC PLAN ID: [id number] FACILITY: [facility] PRINTED ON: 01/03/21 16:20 CT All edits/amendments must be made on the electronic document DICTATION DATE: 01/03/211619 TECHNOLOGY EDUCATION INSTRUCTOR: SHAREE 01/03/211619 RPT#: [id number] DC DATE:01/02/21 STATUS: DIS IN [facility] [address] [place] [address] END OF REPORT
== END 2021-01-02 17:04 | disposition short-term general hospital (02) | DRG 546 ==
LOC: D.ER 08:17 → D.EDHOLD 13:24 → OBSVTIME 13:25 → D.ICU 12-23 15:57 → D.MS 12-23 15:57 → D.EDHOLD 12-23 15:57 → D.MS 12-24 07:40 → D.ICU 12-28 10:25
PROVIDERS: Emergency Medicine; Family Medicine; Radiology Vascular & Interventional Radiology; ADMIT Legal Medicine; ATTEND Legal Medicine
PROC: 009U3ZX Drainage of Spinal Canal, Percutaneous Approach, Diagnostic (ICD-10-PCS; principal; 2020-12-29 10:00)
DX: M32.9 Systemic lupus erythematosus, unspecified (principal); I47.1 Supraventricular tachycardia; M06.9 Rheumatoid arthritis, unspecified; I73.00 Raynaud's syndrome without gangrene; D64.9 Anemia, unspecified; I10 Essential (primary) hypertension; R51.9 Headache, unspecified; R40.4 Transient alteration of awareness; G40.909 Epilepsy, unspecified, not intractable, without status epilepticus